=== PATIENT | male | born 1945 | race Caucasian/White ===

== ENCOUNTER 2018-12-17 10:38 | Inpatient (IN) ==
[2018-12-17] MEDS ORDERED: Ondansetron 4 MG/2 ML VIAL ONE ×2 (10:44→15:22)
[2018-12-17] MEDS ORDERED: 0.9 % Sodium Chloride 1,000 ML ONE (10:45)
[2018-12-17] MEDS ORDERED: *HR* FentaNYL (PF) 100 MCG/2 ML VIAL ONE ×2 (10:45→15:20)
[2018-12-17] MEDS ORDERED: Ondansetron 4 MG/2 ML VIAL IVP ONE (10:50)
[2018-12-17] MEDS ORDERED: *HR* FentaNYL (PF) 100 MCG/2 ML VIAL IVP ONE ×2 (10:51→13:30)
[2018-12-17] MEDS ORDERED: 0.9 % Sodium Chloride 1,000 ML IVC ONE (10:51)
--- NOTE | 2018-12-17 10:51 | Emergency Department Note ---
Disposition Clinical Impression: Abdominal pain, Perforated abdominal viscus, Leukocytosis, Frail elderly, Diabetes mellitus, Anemia Disposition: Admitted As Inpatient Forms: ED Satisfaction Letter, Work/School Release General Adult HPI - General Chief complaint: ED Abdominal Pain Stated complaint: Abdominal pain Time Seen by Provider: 12/17/18 10:50 Source: EMS Limitations: no limitations - History of Present Illness HPI Narrative: 73-year-old male reports emergency department complaining of abdominal pain. The patient had a colonoscopy yesterday with removal of a polyp per Dr. Vasquez. There is no history of trauma. The patient denies any chest pain or shortness of breath. No fevers. There is no history of vomiting of bloody material. No history of anticoagulant therapy. The patient has had no difficulty moving his arms or legs independently. He describes severe abdominal pain. Nursing describes a tight abdomen. No other acute complaints reported. Pain Scale: 10 - Related Data Home Medications Medication Instructions Recorded Confirmed Aspirin [Lo-Dose Aspirin EC] 02/13/18 Atorvastatin Calcium 02/13/18 Citalopram Hydrobromide 40 mg PO 02/13/18 [Citalopram HBr] Fenofibrate 02/13/18 Fiber 02/13/18 Fluticasone Propionate [Flovent 02/13/18 Diskus] Metformin HCl [Metformin HCl ER] 02/13/18 Metoprolol Tartrate 02/13/18 Nitroglycerin [Nitrostat] 02/13/18 [place]-3/Dha/Epa/Fish Oil [Fish Oil 02/13/18 1,000 mg Softgel] Proair Hfa 02/13/18 Tizanidine HCl [Zanaflex] 02/13/18 Ubidecarenone [Co Q-10] 200 mg PO 02/13/18 Vitamin D 02/13/18 Previous Rx's Medication Instructions Recorded Amoxicillin 875 mg PO BID #20 tablet 02/13/18 predniSONE [PredniSONE] 0 mg PO DAILY #15 tablet 02/13/18 Allergies Allergy/AdvReac Type Severity Reaction Status Date / Time No Known Allergies Allergy Verified 02/13/18 10:33 All systems ED: reviewed and negative except as stated. Past Medical History - Past Medical History Medical history: Reports: cancer, diabetes, hypertension Surgical history: Reports: coronary bypass (CABG) Psychiatric history: Reports: no psych history - Social History Smoking Status: Former smoker Smokeless Tobacco Status: No Alcohol use: Reports: none Physical Exam - General Limitations: no limitations General appearance: alert, in no apparent distress, other (Somewhat sedate on my examination status post Fentanyl infusion.) - Head Head exam: atraumatic, normocephalic, normal inspection - Eye Eye exam: Present: scleral icterus, miosis. Absent: EOMI, conjunctival injection - ENT ENT exam: normal exam, normal oropharynx, mucous membranes moist, TM's normal bilaterally, normal external ear exam - Neck Neck exam: Present: full ROM, trachea midline. Absent: normal inspection - Chest Chest inspection: Present: normal inspection, symmetric chest wall rise - Respiratory Respiratory exam: Present: normal lung sounds bilaterally. Absent: respiratory distress, prolonged expiratory phase - Cardiovascular Cardiovascular exam: Present: regular rate, normal rhythm, normal heart sounds - Abdominal Exam Abdominal exam: Present: tenderness, distention, rigidity. Absent: trauma, incision, pulsatile mass Abdominal tenderness: Present: severe - Extremities Exam Extremities exam: Present: normal inspection, full ROM, normal capillary refill. Absent: tenderness, pedal edema, joint swelling, calf tenderness - Expanded Lower Extremity Exam Neurovascular/Tendon exam: Present: normal capillary refill. Absent: motor deficit, sensory deficit, tendon deficit, extremity cold to touch, pallor - Back Exam Back exam: Present: normal inspection, full ROM. Absent: tenderness, CVA tenderness (R), CVA tenderness (L), vertebral tenderness - Neurological Exam Neurological exam: Present: alert, oriented X3, CN II-XII intact. Absent: motor sensory deficit - Psychiatric Psychiatric exam: Present: normal affect, normal mood - Skin Skin exam: Present: warm, dry, intact, normal color, diaphoresis. Absent: rash, cyanosis Course Vital Signs Temperature 98.3 F 12/17/18 10:41 Pulse Rate 84 12/17/18 10:41 Respiratory Rate 11 12/17/18 10:41 Blood Pressure 141/85 12/17/18 10:41 O2 Sat by Pulse Oximetry 90 12/17/18 10:41 Temperature 98.3 F 12/17/18 10:41 Pulse Rate 84 12/17/18 10:41 Respiratory Rate 11 12/17/18 10:41 Blood Pressure 141/85 12/17/18 10:41 O2 Sat by Pulse Oximetry 93 12/17/18 10:41 Oxygen Delivery Oxygen Delivery Room Air Medical Decision Making - MDM Narrative Medical decision making narrative: The patient presents with severe abdominal pain which began this morning. Clin ical peritonitis is noted. Acute obstruction series reveals no acute disease, laboratory studies show hyperglycemia and anemia and leukocytosis. CT scan abdomen reveals perforated midtransverse colon. Reportedly the patient had a colonoscopy with Dr. Vasquez yesterday with polypectomy. The patient was given IV fluids. Pain control measures were initiated. I informed the patient and family members of his diagnosis and called Dr. Carter, surgeon on-call who came to the emergency department to evaluate the patient. The patient will likely require surgical intervention and we are planning to admit the patient. I have a page out to Dr. Vasquez and am attempting to notify him. - Lab Data Lab results reviewed: Yes I reviewed the patient's lab results. Result diagrams: 12/17/18 11:29 12/17/18 11:29 Lab Results 12/17/18 12/17/18 12/17/18 Range/Units 11:29 11:29 11:29 WBC 26.2 H (4.3-11.1) K/mcL RBC 4.49 (4.19-5.50) M/mcL Hgb 12.7 L (12.9-16.9) g/dL Hct 39.3 (37.5-50.1) % MCV 87.5 (83.0-100.0) fL MCH 28.3 (28.0-33.3) pg MCHC 32.3 (31.6-35.5) g/dL RDW 13.1 (11.5-14.5) % Plt Count 249 (140-400) K/mcL MPV 14.0 H (9.4-12.4) fL Immature Gran % Test Not Performed Seg Neutrophils % 74.0 % Band Neutrophils % 8.0 H (0-4) % Lymphocytes % 4.0 % Monocytes % 14.0 % Eosinophils % Test Not Performed Basophils % Test Not Performed Neutrophils # 21.5 H (1.6-8.9) K/mcL Lymphocytes # 1.1 (0.6-4.6) K/mcL Monocytes # 3.7 H (0.0-1.3) K/mcL Eosinophils # Test Not Performed Basophils # Test Not Performed Platelet Estimate Normal (Normal) PT 11.8 (9.4-12.1) Seconds INR 1.0 APTT 31.9 (26.0-36.0) Seconds Sodium 140 (136-145) mEq/L Potassium 4.5 (3.5-5.1) mEq/L Chloride 105 (98-107) mEq/L Carbon Dioxide 26 (23-29) mEq/L BUN 19 (8-23) mg/dL Creatinine 1.19 (0.70-1.30) mg/dL Est GFR ( Amer) > 60 (> 60) Est GFR (Non-Af Amer) > 60 (> 60) BUN/Creatinine Ratio 16 (6-26) Glucose 253 H (70-105) mg/dL Calculated Osmolality 301 H (280-300) Lactic Acid (0.5-2.2) mmol/L Calcium 9.7 (8.6-10.3) mg/dL Total Bilirubin 0.8 (0.3-1.0) mg/dL Direct Bilirubin 0.2 (0.0-0.2) mg/dL Indirect Bilirubin 0.6 (0.0-1.2) mg/dL AST 15 (13-39) Units/L ALT 24 (7-52) Units/L Alkaline Phosphatase 66 (34-104) Units/L Troponin I < 0.03 (< 0.04) ng/mL Serum Total Protein 6.8 (6.4-8.9) g/dL Albumin 4.3 (3.5-5.7) g/dL Globulin 2.5 (2.4-3.5) g/dL Albumin/Globulin Ratio 1.7 (1.1-2.2) Lipase 9 L (11-82) Units/L 12/17/18 Range/Units 11:29 WBC (4.3-11.1) K/mcL RBC (4.19-5.50) M/mcL Hgb (12.9-16.9) g/dL Hct (37.5-50.1) % MCV (83.0-100.0) fL MCH (28.0-33.3) pg MCHC (31.6-35.5) g/dL RDW (11.5-14.5) % Plt Count (140-400) K/mcL MPV (9.4-12.4) fL Immature Gran % Seg Neutrophils % % Band Neutrophils % (0-4) % Lymphocytes % % Monocytes % % Eosinophils % Basophils % Neutrophils # (1.6-8.9) K/mcL Lymphocytes # (0.6-4.6) K/mcL Monocytes # (0.0-1.3) K/mcL Eosinophils # Basophils # Platelet Estimate (Normal) PT (9.4-12.1) Seconds INR APTT (26.0-36.0) Seconds Sodium (136-145) mEq/L Potassium (3.5-5.1) mEq/L Chloride (98-107) mEq/L Carbon Dioxide (23-29) mEq/L BUN (8-23) mg/dL Creatinine (0.70-1.30) mg/dL Est GFR ( Amer) (> 60) Est GFR (Non-Af Amer) (> 60) BUN/Creatinine Ratio (6-26) Glucose (70-105) mg/dL Calculated Osmolality (280-300) Lactic Acid 2.1 (0.5-2.2) mmol/L Calcium (8.6-10.3) mg/dL Total Bilirubin (0.3-1.0) mg/dL Direct Bilirubin (0.0-0.2) mg/dL Indirect Bilirubin (0.0-1.2) mg/dL AST (13-39) Units/L ALT (7-52) Units/L Alkaline Phosphatase (34-104) Units/L Troponin I (< 0.04) ng/mL Serum Total Protein (6.4-8.9) g/dL Albumin (3.5-5.7) g/dL Globulin (2.4-3.5) g/dL Albumin/Globulin Ratio (1.1-2.2) Lipase (11-82) Units/L - Radiology Data Radiology results reviewed: Yes I reviewed the patient's radiology results.
[2018-12-17 11:43] LABS: Hematocrit 39.3 % (37.5-50.1); Hemoglobin 12.7 g/dL (12.9-16.9); Mean Corpuscular HGB Conc 32.3 g/dL (31.6-35.5); Mean Corpuscular Hemoglobin 28.3 pg (28.0-33.3); Mean Corpuscular Volume 87.5 fL (83.0-100.0); Platelet Count 249 K/mcL (140-400); Red Blood Count 4.49 M/mcL (4.19-5.50); Red Cell Distribution Width 13.1 % (11.5-14.5)
[2018-12-17] MEDS ORDERED: Isovue-370 500 ML BOTTLE IVP ONE (11:51)
[2018-12-17 11:53] LABS: Prothrombin Time 11.8 Seconds (9.4-12.1)
[2018-12-17 11:55] LABS: Activated Partial Thrombo Time 31.9 Seconds (26.0-36.0)
[2018-12-17 12:04] LABS: Troponin I < 0.03 ng/mL (< 0.04)
[2018-12-17 12:05] LABS: Alanine Aminotransferase 24 Units/L (7-52); Albumin 4.3 g/dL (3.5-5.7); Albumin/Globulin Ratio 1.7 (1.1-2.2); Alkaline Phosphatase 66 Units/L (34-104); Aspartate Amino Transferase 15 Units/L (13-39); BUN/Creatinine Ratio 16 (6-26); Bilirubin,Direct 0.2 mg/dL (0.0-0.2); Bilirubin,Indirect 0.6 mg/dL (0.0-1.2); Bilirubin,Total 0.8 mg/dL (0.3-1.0); Blood Urea Nitrogen 19 mg/dL (8-23); Calcium 9.7 mg/dL (8.6-10.3); Carbon Dioxide 26 mEq/L (23-29); Chloride 105 mEq/L (98-107); Globulin 2.5 g/dL (2.4-3.5); Glucose 253 mg/dL (70-105); Lipase 9 Units/L (11-82); Osmolality,Calculated 301 (280-300); Potassium 4.5 mEq/L (3.5-5.1); Sodium 140 mEq/L (136-145); Total Protein 6.8 g/dL (6.4-8.9); eGFR For Non-African Americans > 60 (> 60)
[2018-12-17 12:51] LABS: Lymphocytes # 1.1 K/mcL (0.6-4.6); Monocytes # 3.7 K/mcL (0.0-1.3); Neutrophils # 21.5 K/mcL (1.6-8.9)
[2018-12-17 12:52] LABS: Platelet Estimate Normal (Normal)
--- NOTE | 2018-12-17 13:48 | General Surg History&Physical ---
Date of Encounter: 12/17/18 Time of Encounter: 13:40 Assessment and Plan (1) Perforated abdominal viscus Current Visit: Yes Status: Acute The assessment and plan as outlined above was discussed with the patient and/or family members who expressed understanding and agreement. All questions were answered. The patient has an acute perforation of the colon by CAT scan and on physical examination. I recommended immediate exploratory laparotomy with repair, resection, or diversion of the transverse colon. History of Present Illness Chief complaint: Acute abdomen HPI: Mr. Higginbotham is a 73 year old male Who underwent colonoscopy yesterday. He had multiple colon polyps removed. He developed abdominal pain last night. Now he has severe pain with motion and a distended abdomen. On physical examination he clearly has diffuse peritonitis with rebound tenderness and an acute abdomen. White blood cell count is elevated at 26,200 CAT scan of the abdomen demonstrates multiple foci of free air with inflammatory changes in the transverse colon. Findings are consistent with acute colon perforation. Since the patient has an acute abdomen and leukocytosis I recommended immediate exploratory laparotomy with any necessary procedure to repair, resect, or divert the colon. Past Med Surg Social Fam HX - Past Medical History Medical history: cancer, diabetes, hypertension Additional medical history: sleep apnea Psychiatric history: no psych history - Past Surgical History Surgical History: coronary bypass (CABG) Additional surgical history: colonoscopy - Social History Smoking Status: Former smoker Smokeless Tobacco Status: No Alcohol use: none Medications and Allergies Amoxicillin 875 mg PO BID #20 tablet 02/13/18 [Rx] Aspirin [Lo-Dose Aspirin EC] 02/13/18 [History] Atorvastatin Calcium 02/13/18 [History] Citalopram Hydrobromide [Citalopram HBr] 40 mg PO 02/13/18 [History] Fenofibrate 02/13/18 [History] Fiber 02/13/18 [History] Fluticasone Propionate [Flovent Diskus] 02/13/18 [History] Metformin HCl [Metformin HCl ER] 02/13/18 [History] Metoprolol Tartrate 02/13/18 [History] Nitroglycerin [Nitrostat] 02/13/18 [History] [place]-3/Dha/Epa/Fish Oil [Fish Oil 1,000 mg Softgel] 02/13/18 [History] Proair Hfa 02/13/18 [History] Tizanidine HCl [Zanaflex] 02/13/18 [History] Ubidecarenone [Co Q-10] 200 mg PO 02/13/18 [History] Vitamin D 02/13/18 [History] predniSONE [PredniSONE] 0 mg PO DAILY #15 tablet 02/13/18 [Rx] Allergy/AdvReac Type Severity Reaction Status Date / Time No Known Allergies Allergy Verified 02/13/18 10:33 Review of Systems All systems PM: The remainder of the systems were reviewed and are negative General Surgery Exam Initial Vital Signs Temp Pulse Resp BP Pulse Ox 98.3 F 84 11 141/85 90 12/17/18 10:41 12/17/18 10:41 12/17/18 10:41 12/17/18 10:41 12/17/18 10:41 - General physical appearance well developed, well nourished, severe pain, obese - Neck no masses, no bruits, trachea midline, no lymphadectomy, no venous distension - Respiratory normal expansion, normal respiratory effort, clear to percussion, clear to auscultation - Cardiovascular Cardiovascular exam: Present: RRR, no murmurs/rubs/gallops - Abdomen Abdomen general surgery: Present: guarding, rebound Abdominal Tenderness: Present: diffusely - Neurologic Present: CN 2-12 grossly intact, normal coordination, normal sensation - Psychiatric Psychiatric general surgery: Present: appropriate, oriented to person, oriented to place, oriented to time, speech is normal, memory intact Results - Labs 12/17/18 11:29 12/17/18 11:29 Abnormal lab results WBC 26.2 K/mcL (4.3-11.1) H 12/17/18 11:29 Hgb 12.7 g/dL (12.9-16.9) L 12/17/18 11:29 MPV 14.0 fL (9.4-12.4) H 12/17/18 11:29 Band Neutrophils % 8.0 % (0-4) H 12/17/18 11:29 Neutrophils # 21.5 K/mcL (1.6-8.9) H 12/17/18 11:29 Monocytes # 3.7 K/mcL (0.0-1.3) H 12/17/18 11:29 Glucose 253 mg/dL (70-105) H 12/17/18 11:29 Calculated Osmolality 301 (280-300) H 12/17/18 11:29 Lipase 9 Units/L (11-82) L 12/17/18 11:29 Diabetes panel 12/17/18 Range/Units 11:29 Sodium 140 (136-145) mEq/L Potassium 4.5 (3.5-5.1) mEq/L Chloride 105 (98-107) mEq/L Carbon Dioxide 26 (23-29) mEq/L BUN 19 (8-23) mg/dL Creatinine 1.19 (0.70-1.30) mg/dL Glucose 253 H (70-105) mg/dL Calcium 9.7 (8.6-10.3) mg/dL AST 15 (13-39) Units/L ALT 24 (7-52) Units/L Alkaline Phosphatase 66 (34-104) Units/L Albumin 4.3 (3.5-5.7) g/dL Calcium panel 12/17/18 Range/Units 11:29 Calcium 9.7 (8.6-10.3) mg/dL Albumin 4.3 (3.5-5.7) g/dL Pituitary panel 12/17/18 Range/Units 11:29 Sodium 140 (136-145) mEq/L Potassium 4.5 (3.5-5.1) mEq/L Chloride 105 (98-107) mEq/L Carbon Dioxide 26 (23-29) mEq/L BUN 19 (8-23) mg/dL Creatinine 1.19 (0.70-1.30) mg/dL Glucose 253 H (70-105) mg/dL Calcium 9.7 (8.6-10.3) mg/dL Adrenal panel 12/17/18 Range/Units 11:29 Sodium 140 (136-145) mEq/L Potassium 4.5 (3.5-5.1) mEq/L Chloride 105 (98-107) mEq/L Carbon Dioxide 26 (23-29) mEq/L BUN 19 (8-23) mg/dL Creatinine 1.19 (0.70-1.30) mg/dL Glucose 253 H (70-105) mg/dL Calcium 9.7 (8.6-10.3) mg/dL Total Bilirubin 0.8 (0.3-1.0) mg/dL AST 15 (13-39) Units/L ALT 24 (7-52) Units/L Alkaline Phosphatase 66 (34-104) Units/L Albumin 4.3 (3.5-5.7) g/dL All other labs normal. - Imaging CT scan - abdomen: image reviewed (I personally reviewed the CAT scan of the abdomen and the findings are consistent with with perforated transverse colon.)
[2018-12-17] MEDS ORDERED: Piperacillin/Tazobactam 3.375 GM in 0.9 % Sodium Chloride Mini Bag 100 ML IVPB ONE (13:52)
--- NOTE | 2018-12-17 14:03 | Anesthesia Evaluation PreOp ---
Date of Encounter: 12/17/18 Time of Encounter: 14:22 - Past History Planned Operation: Exploratory Laparotomy Cardiac History: CHF, HTN, Hyperlipidemia, Cardiac Surgery (CABG x 3 in 2010) Pulmonary History: Former smoker (quit 10 years ago), COPD, TAE Dx (does not use CPAP) INSTRUMENTATION CONTROLS ENGINEER History: Denies Any Significant HX Other Medical History: Diabetes Type II Anesthesia History: No Prior Anesthetic Complications, Past Anesthesia Alcohol Use: none Drug use: none Medications and Allergies Amoxicillin 875 mg PO BID #20 tablet 02/13/18 [Rx] Aspirin [Lo-Dose Aspirin EC] 02/13/18 [History] Atorvastatin Calcium 02/13/18 [History] Citalopram Hydrobromide [Citalopram HBr] 40 mg PO 02/13/18 [History] Fenofibrate 02/13/18 [History] Fiber 02/13/18 [History] Fluticasone Propionate [Flovent Diskus] 02/13/18 [History] Metformin HCl [Metformin HCl ER] 02/13/18 [History] Metoprolol Tartrate 02/13/18 [History] Nitroglycerin [Nitrostat] 02/13/18 [History] [place]-3/Dha/Epa/Fish Oil [Fish Oil 1,000 mg Softgel] 02/13/18 [History] Proair Hfa 02/13/18 [History] Tizanidine HCl [Zanaflex] 02/13/18 [History] Ubidecarenone [Co Q-10] 200 mg PO 02/13/18 [History] Vitamin D 02/13/18 [History] predniSONE [PredniSONE] 0 mg PO DAILY #15 tablet 02/13/18 [Rx] Allergy/AdvReac Type Severity Reaction Status Date / Time No Known Allergies Allergy Verified 02/13/18 10:33 - Meds/Allergy Pre-op Review Medications Reviewed: Yes Allergies Reviewed: Yes Beta Blockers on Current Med List: Yes If Beta Blockers taken, Date/Time (Last Dose taken): 12/16/2018 at 2300 Anesthesia Results - Labs 12/17/18 11:29 12/17/18 11:29 - Imaging EKG: report reviewed (02/13/2018 SINUS RHYTHM WITH SINUS ARRHYTHMIA INDETERMINATE AXIS RIGHT BUNDLE BRANCH BLOCK) Anesthesia Exam Vital Signs/O2 Sat, Most Current Temp Pulse Resp BP Pulse Ox 98.3 F 92 16 166/85 97 12/17/18 10:41 12/17/18 13:37 12/17/18 13:37 12/17/18 13:37 12/17/18 13:37 Height: 5'11''/1.8m Weight: 240 lbs/108.9 kg NPO (# of Hours): 8 Pain Scale: 4 (abdomen) Pain Scale Used: Numeric (1 - 10) - HEENT Pupil (Motor): EOMI Mallampati: III Teeth: Normal Oral Opening: Greater than 3 - INSTRUMENTATION CONTROLS ENGINEER LOC: Oriented INSTRUMENTATION CONTROLS ENGINEER Motor: Normal RUE, Normal LUE, Normal RLE, Normal LLE, Normal Face INSTRUMENTATION CONTROLS ENGINEER Sensory: Normal: RUE, LUE, RLE, LLE, Face - Cardiac Rhythm: Regular Murmur: Systolic - Pulmonary Breath Sounds: bilateral Clear Respiratory Effort: Symmetrical Anesthesia Assess/Plan ASA Score: 3 ( Patient understands that he is at increased risk for perio perative complications including myocardial infarct, arrhythmias, CVA, post op vent support/ICU stay, and . Patient wishes to proceed.) Level of consciousness: Cooperative, Oriented, Tranquil Anesthetic Plan: General Monitoring Plan: Standard Monitors Recovery Plan: PACU
[2018-12-17] MEDS ORDERED: 0.9 % Sodium Chloride 1,000 ML IVC SCH (14:15)
[2018-12-17] MEDS ORDERED: CefOXitin 1,000 MG VIAL ONE (14:23)
[2018-12-17] MEDS ORDERED: Heparin 1,000 UNITS/500 mL 500 ML ONE (14:25)
[2018-12-17] MEDS ORDERED: cefOXitin 1,000 MG, Sodium Chloride IRRigation 1,000 ML IR ONE (15:00)
--- NOTE | 2018-12-17 15:09 | Anesthesia Procedures ---
Date of Encounter: 12/17/18 Time of Encounter: 14:33 Procedures: Anesthesia - Arterial Line Time out performed: Yes Sedation: Fentanyl (mcg): 100 Supplemental Oxygen via Nasal Cannula (L/min): 3 Local Anesthetic: Lidocaine 1% Amount of Anesthetic used (mls): 1 Size (Gauge): 20 Length (inches): 1 3/4 Technique Used: sterile prep, guide wire technique Post-Procedure: line taped into place Patient tolerated procedure: well, no complications Complications: none Site: Radial L
[2018-12-17] MEDS ORDERED: *HR* Propofol 200 MG/20 ML VIAL IVP ONE (15:20)
[2018-12-17] MEDS ORDERED: Lidocaine -MPF 4% 5 ML AMPUL ONE (15:20)
[2018-12-17] MEDS ORDERED: *HR* Rocuronium Bromide 50 MG/5 ML VIAL ONE (15:20)
[2018-12-17] MEDS ORDERED: *HR* Midazolam HCl 2 MG/2 ML VIAL ONE (15:20)
[2018-12-17] MEDS ORDERED: Lidocaine -MPF 2% 2 ML VIAL ONE ×2 (15:20→15:21)
[2018-12-17] MEDS ORDERED: *HR* Succinylcholine 200 MG/10 ML VIAL IVP ONE (15:20)
[2018-12-17] MEDS ORDERED: Dexamethasone 4 MG/ML VIAL ONE (15:22)
[2018-12-17] MEDS ORDERED: Neostigmine Methylsulfate 3 MG/3 ML SYRINGE ONE (15:22)
[2018-12-17] MEDS ORDERED: *HR* Metoprolol 5 MG/5 ML VIAL IVP ONE (15:24)
--- NOTE | 2018-12-17 15:47 | Operative Note ---
Date of procedure: 12/17/18 Pre-op diagnosis: Colon perforation with acute abdomen Post-op diagnosis: same Procedure: Open repair of colon injury (perforation) Anesthesia: GHISLAINE Surgeon: Anthony Carter Was there an commercial escrow assistant present: Yes Seed Laboratory Assistant: Teresita Paulino Estimated blood loss (cc): 20 Specimen: None Condition: stable Disposition: PACU Procedure in Detail: After informed consent patient was taken to the operating room on an emergency basis. He was given adequate endotracheal anesthesia and the abdomen was prepped and draped in sterile fashion utilizing ChloraPrep standard draping techniques. Timeout was taken and patient was identified. I made an upper abdominal midline incision over where I believed the perforation was in the transverse colon. The abdomen was entered. He had free pus in the abdomen but no visible stool. Abdomen was irrigated clear of any pus. I examined the transverse colon and identified a 1 cm opening in the mid transverse colon the surrounding margins appeared whitish discolored consistent with thermal injury. I circumferentially debrided the wound. I was very pleased with the quality of tissue. Since there was no stool contamination I felt that the patient would do well with primary closure. I closed the opening in the transverse colon in 2 layers with interrupted 3-0 Vicryl on the mucosal layer and interrupted 2-0 silk on the sero- muscular layer. I used an omental patch over the top of the closure and this was secured with interrupted Vicryl. This given excellent technical result. The entire abdomen was irrigated with copious amounts of antibiotic containing solution until completely clear. The midline was closed with looped 0 PDS. Skin was closed with interrupted 2-0 Vicryl and skin clips. He tolerated The procedure well.
[2018-12-17] MEDS: *HR* HYDROmorphone (PF) 1 MG/ML SYRINGE IVP PRN ×2 (16:29→16:35)
--- NOTE | 2018-12-17 16:57 | Anesthesia Evaluation Post Op ---
Date of Encounter: 12/17/18 Time of Encounter: 16:55 - Vital Signs Vital Signs: Vital Signs/O2 Sat, Most Current Temp Pulse Resp BP Pulse Ox 100.4 F H 96 20 166/80 91 12/17/18 16:40 12/17/18 16:40 12/17/18 16:40 12/17/18 16:40 12/17/18 16:40 - Lungs Lungs: Clear Ascult./Percussion - Airway Airway: Non-obstructed - Cardiovascular Regular Rate - Mental Status Mental Status: Asleep with brisk response to light stimulation - Nausea Vomiting Nausea Vomiting: Not Present - Hydration Hydration: NPO, Has not voided - Discharge PostOp Status: Transfer Patient to floor
[2018-12-17] MEDS ORDERED: *HR* Morphine 2 MG/ML SYRINGE IVP PRN (17:20)
[2018-12-17] MEDS ORDERED: *HR* Heparin 5,000 UNIT/ML VIAL SQ SCH (18:00)
[2018-12-17] MEDS: *HR* Heparin 5,000 UNIT/ML VIAL SQ SCH (18:54)
[2018-12-17] MEDS: 0.9 % Sodium Chloride 1,000 ML IVC SCH (18:56)
[2018-12-17] MEDS: OXYCODONE Oral CONC 10 MG/0.5 ML ORAL.SYG SL PRN (20:11)
[2018-12-17] MEDS: Piperacillin/Tazobactam 3.375 GM in 0.9 % Sodium Chloride Mini Bag 100 ML IVPB SCH (22:41)
[2018-12-18] MEDS: 0.9 % Sodium Chloride 1,000 ML IVC SCH ×2 (05:12→13:54)
[2018-12-18] MEDS: Piperacillin/Tazobactam 3.375 GM in 0.9 % Sodium Chloride Mini Bag 100 ML IVPB SCH ×3 (05:22→22:59)
[2018-12-18] MEDS: *HR* Heparin 5,000 UNIT/ML VIAL SQ SCH ×2 (05:22→17:11)
[2018-12-18 06:36] LABS: Basophils % 0.1 %; Hematocrit 35.6 % (37.5-50.1); Hemoglobin 11.4 g/dL (12.9-16.9); Immature Granulocytes % 0.5 % (0-4); Lymphocytes % 5.8 %; Mean Corpuscular Hemoglobin 28.4 pg (28.0-33.3); Mean Corpuscular Volume 88.8 fL (83.0-100.0); Mean Platelet Volume 14.4 fL (9.4-12.4); Monocytes # 0.7 K/mcL (0.0-1.3); Monocytes % 4.1 %; Platelet Count 194 K/mcL (140-400); Red Blood Count 4.01 M/mcL (4.19-5.50); Red Cell Distribution Width 13.4 % (11.5-14.5); Segmented Neutrophils % 89.5 %
[2018-12-18 06:56] LABS: BUN/Creatinine Ratio 16 (6-26); Blood Urea Nitrogen 18 mg/dL (8-23); Calcium 9.2 mg/dL (8.6-10.3); Carbon Dioxide 26 mEq/L (23-29); Chloride 109 mEq/L (98-107); Glucose 173 mg/dL (70-105); Osmolality,Calculated 300 (280-300); Sodium 142 mEq/L (136-145); eGFR For Non-African Americans > 60 (> 60)
[2018-12-18] MEDS: OXYCODONE Oral CONC 10 MG/0.5 ML ORAL.SYG SL PRN ×3 (07:23→23:04)
[2018-12-18] MEDS: Pantoprazole 40 MG VIAL IVP SCH (07:23)
[2018-12-18 07:30] LABS: Platelet Estimate Normal (Normal)
--- NOTE | 2018-12-18 08:29 | General Surgery Progress Note ---
Date of Encounter: 12/18/18 Time of Encounter: 07:00 - Assessment and Plan (1) Perforated abdominal viscus Current Visit: Yes Status: Acute The patient is postoperative day 1 from repair of colon perforation. His pain is improved. We will continue IV antibiotics today. Continue supportive care today. (2) Diabetes mellitus Current Visit: Yes Status: Acute The patient has mild hyperglycemia with glucose levels of 170. We will restart his metformin. Qualifiers: Diabetes mellitus type: type 2 Diabetes mellitus animal care specialist insulin use: without group home use Diabetes mellitus complication status: without complication Qualified Code(s): E11.9 - Type 2 diabetes mellitus without complications Subjective Narrative: The patient is seen and evaluated on morning rounds. The patient states that he is having 5 out of 10 pain which is an improvement from his preoperative pain. He is afebrile and his vital signs are stable and he does have a few bowel sounds in the right lower quadrant. Lungs are clear. His white blood cell c ount has dropped dramatically from 26,000 down to 16,000. His glucose level was 170. Heart rate is in the 90s. We will restart his metoprolol as well as metformin today. Maintain clear liquid diet. Expected course for postoperative day 1 repair of colon perforation Anthony Carter MD FACS Objective Vital Signs - Last 8 Hours Temp Pulse Resp BP Pulse Ox 12/18/18 06:41 98.2 F 94 20 160/83 95 12/18/18 04:00 98.8 F 94 16 150/74 95 Intake and Output 12/17/18 12/18/18 12/18/18 23:59 07:59 15:59 Intake Total 1100 / 1100 Output Total 250 / 250 Balance -250 / -250 1100 / 1100 Intake: IV Fluids 1100 / 1100 0.9 % Sodium Chloride 1,000 ML 1000 / 1000 @ 100 mls/hr IVC .Q10H AIME Rx#: [id number] Zosyn 3.375 GM In 0.9 % Sodium 100 / 100 Chloride (Mini-Bag +) 100 ML @ 25 mls/hr IVPB Q8H AIME Rx#: [id number] Output: Urine 250 / 250 Other: Blood Glucose* 203 - General physical appearance well developed, well nourished, moderate pain - Respiratory normal expansion, normal respiratory effort, clear to percussion, clear to auscultation - Cardiovascular Cardiovascular exam: Present: RRR, no murmurs/rubs/gallops - Abdomen Abdomen: Present: bowel sounds present, soft (Incisional pain noted) - Incision Incision: Present: clean and dry - Neurologic normal coordination, normal sensation - Psychiatric oriented to time, oriented to person, oriented to place, speech is normal, memory intact - Labs 12/18/18 06:12 12/18/18 06:12 Diabetes panel 12/17/18 12/18/18 Range/Units 11: 06:12 Sodium 140 142 (136-145) mEq/L Potassium 4.5 4.0 (3.5-5.1) mEq/L Chloride 105 109 H (98-107) mEq/L Carbon Dioxide 26 26 (23-29) mEq/L BUN 19 18 (8-23) mg/dL Creatinine 1.19 1.10 (0.70-1.30) mg/dL Glucose 253 H 173 H (70-105) mg/dL Calcium 9.7 9.2 (8.6-10.3) mg/dL AST 15 (13-39) Units/L ALT 24 (7-52) Units/L Alkaline Phosphatase 66 (34-104) Units/L Albumin 4.3 (3.5-5.7) g/dL Calcium panel 12/17/18 12/18/18 Range/Units 11: 06:12 Calcium 9.7 9.2 (8.6-10.3) mg/dL Albumin 4.3 (3.5-5.7) g/dL Pituitary panel 12/17/18 12/18/18 Range/Units 11: 06:12 Sodium 140 142 (136-145) mEq/L Potassium 4.5 4.0 (3.5-5.1) mEq/L Chloride 105 109 H (98-107) mEq/L Carbon Dioxide 26 26 (23-29) mEq/L BUN 19 18 (8-23) mg/dL Creatinine 1.19 1.10 (0.70-1.30) mg/dL Glucose 253 H 173 H (70-105) mg/dL Calcium 9.7 9.2 (8.6-10.3) mg/dL Adrenal panel 12/17/18 12/18/18 Range/Units 11: 06:12 Sodium 140 142 (136-145) mEq/L Potassium 4.5 4.0 (3.5-5.1) mEq/L Chloride 105 109 H (98-107) mEq/L Carbon Dioxide 26 26 (23-29) mEq/L BUN 19 18 (8-23) mg/dL Creatinine 1.19 1.10 (0.70-1.30) mg/dL Glucose 253 H 173 H (70-105) mg/dL Calcium 9.7 9.2 (8.6-10.3) mg/dL Total Bilirubin 0.8 (0.3-1.0) mg/dL AST 15 (13-39) Units/L ALT 24 (7-52) Units/L Alkaline Phosphatase 66 (34-104) Units/L Albumin 4.3 (3.5-5.7) g/dL Consult Discharge Plan - Plan Referrals: Anthony Carter MD [Partnered Physician] - Yared Resendiz DO [Primary Care Provider] -
[2018-12-18] MEDS: *HR* OxyCODONE/APAP 5/325 TABLET PO PRN ×2 (11:18→17:09)
[2018-12-18] MEDS: *HR* Metoprolol 5 MG/5 ML VIAL IVP PRN (17:56)
[2018-12-19] MEDS: 0.9 % Sodium Chloride 1,000 ML IVC SCH ×2 (00:50→14:22)
[2018-12-19 04:48] LABS: Hematocrit 34.2 % (37.5-50.1); Hemoglobin 10.6 g/dL (12.9-16.9); Mean Corpuscular Hemoglobin 27.9 pg (28.0-33.3); Mean Platelet Volume 14.2 fL (9.4-12.4); Platelet Count 184 K/mcL (140-400); Red Cell Distribution Width 13.2 % (11.5-14.5)
[2018-12-19] MEDS: Piperacillin/Tazobactam 3.375 GM in 0.9 % Sodium Chloride Mini Bag 100 ML IVPB SCH ×3 (05:04→21:05)
[2018-12-19 05:05] LABS: BUN/Creatinine Ratio 19 (6-26); Blood Urea Nitrogen 17 mg/dL (8-23); Calcium 9.5 mg/dL (8.6-10.3); Carbon Dioxide 25 mEq/L (23-29); Chloride 109 mEq/L (98-107); Glucose 147 mg/dL (70-105); Osmolality,Calculated 300 (280-300); Potassium 3.8 mEq/L (3.5-5.1); Sodium 143 mEq/L (136-145); eGFR For Non-African Americans > 60 (> 60)
[2018-12-19] MEDS: *HR* Heparin 5,000 UNIT/ML VIAL SQ SCH ×2 (05:06→17:43)
[2018-12-19] MEDS: *HR* Metoprolol 5 MG/5 ML VIAL IVP PRN ×2 (05:06→12:55)
[2018-12-19] MEDS ORDERED: Furosemide 40 MG/4 ML VIAL IVP ONE (07:41)
[2018-12-19] MEDS ORDERED: Ondansetron 4 MG/2 ML VIAL IVP PRN (07:55)
[2018-12-19] MEDS: OXYCODONE Oral CONC 10 MG/0.5 ML ORAL.SYG SL PRN (07:59)
[2018-12-19] MEDS: *HR* Metformin 500 MG TABLET PO SCH (08:00)
[2018-12-19] MEDS: Pantoprazole 40 MG VIAL IVP SCH (08:01)
--- NOTE | 2018-12-19 08:15 | General Surgery Progress Note ---
Addendum entered and electronically signed by Christina Cano CNP 12/19/18 09:16: CXR is with mild pulmonary vascular congestion, small right greater than left bilateral pleural effusions with probable underlying atelectasis or infiltrate. Patient states since receiving Lasix "are ready feels better." We did expressly review the need for aggressive pulmonary toileting and patient participation today. He is agreeable and states adherence. KUB is with small amount of postoperative ileus. We've decreased his diet and well follow bowel rest today. Addendum entered and electronically signed by Christina Cano CNP 12/19/18 08:53: VITAL SIGNS: Reviewed. See [facility] GENERAL: In no apparent distress. HEENT: Normocephalic, atraumatic, pupils are equal and reactive, extraocular motions intact, oropharynx is pink and moist, there is no neck adenopathy or JVD noted. CHEST/RESPIRATORY: The thorax is free from signs of trauma. Lung sounds: course wet breath sounds insp wheezes CARDIAC: Regular rate and rhythm. Normal S1 and S2, without murmurs, gallops, or rubs. VASCULAR: No Edema. 2+ peripheral pulses. ABDOMEN: Firm, distended, expected postoperative tenderness, INCISION: Surgical incision is clean, dry, and intact. There are no signs of cellulitis or infection noted. MUSCULOSKELETAL: Generalized deconditioning noted, NEUROLOGIC EXAM: Alert and oriented x 3. Speech normal. Follows commands. PSYCHIATRIC: Mood normal. SKIN: No rash or lesions. Original Note: Date of Encounter: 12/19/18 Time of Encounter: 07:15 - Assessment and Plan (1) Perforation of colon as colonoscopy complication Current Visit: Yes Status: Acute Date of procedure: 12/17/18 Pre-op diagnosis: Colon perforation with acute abdomen Post-op diagnosis: same Procedure: Open repair of colon injury (perforation) Anesthesia: ERINNA Surgeon: Anthony Carter POD #2 as above, no specimens obtained. Incision is c/d/i. Noted nutrition (at their discretion) advanced patient to clears with a protein supplement. Patient reports SOB and nausea, but no vomiting today. He denies flatus. He has wet lung sounds and possible postoperative ileus. We will treat him for suspect ed fluid overload with CXR (PA/LAT r/o PNA), lasix, add further antihypertensives, decrease fluids, decrease his diet, and check KUB (may require NG placement). he states he has not been out of bed and is using his incentive spirometer "whenever I feel like I can which is not much." Plan: Continue supportive care and discomfort management while awaiting return of bowel function NPO with limited ice chips KUB now, consideration for NG placement Decrease IVF Lasix x1 dose, now Hydralazine x1 dose now Add scheduled lisinopril Strict I&O EPCDs aggressive pulmonary toileting OOB to chair TID Ambulate TID Continue GI and DVT prophylaxis (2) HTN, goal below 130/80 Current Visit: Yes Status: Acute Continue PRN antihypertensives hydralazine x 1 dose now add scheduled PO lisinopril Decrease IVF (3) Leukocytosis Current Visit: Yes Status: Acute WBC is downtrending. Continue IV Zosyn repeat a.m. 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 Will obtian CXR, decrease IV fluids, provide Lasix, continue to monitor Qualifiers: Hypervolemia type: unspecified Qualified Code(s): E87.70 - Fluid overload, unspecified Subjective Patient reports: still having pain, voiding w/o difficulty, no flatus, no bowel movement, nausea, shortness of breath, afebrile Objective Vital Signs - Last 8 Hours Temp Pulse Resp BP Pulse Ox 12/19/18 06:53 98.4 F 93 22 200/98 95 12/19/18 05:01 98.3 F 94 21 193/100 94 Intake and Output 12/18/18 12/19/18 12/19/18 23:59 07:59 15:59 Intake Total 1220 / 1220 100 / 100 Output Total 650 / 650 Balance 1220 / 1220 -550 / -550 Intake: IV Fluids 1100 / 1100 100 / 100 0.9 % Sodium Chloride 1,000 ML 1000 / 1000 @ 100 mls/hr IVC .Q10H [facility] Rx#: [id number] Zosyn 3.375 GM In 0.9 % Sodium 100 / 100 100 / 100 Chloride (Mini-Bag +) 100 ML @ 25 mls/hr IVPB Q8H [facility] Rx#: [id number] Oral 120 / 120 0 / 0 Output: Urine 650 / 650 Other: # Voids 1 - Labs 12/19/18 03:55 12/19/18 03:55 Diabetes panel 12/19/18 Range/Units 03:55 Sodium 143 (136-145) mEq/L Potassium 3.8 (3.5-5.1) mEq/L Chloride 109 H (98-107) mEq/L Carbon Dioxide 25 (23-29) mEq/L BUN 17 (8-23) mg/dL Creatinine 0.89 (0.70-1.30) mg/dL Glucose 147 H (70-105) mg/dL Calcium 9.5 (8.6-10.3) mg/dL Calcium panel 12/19/18 Range/Units 03:55 Calcium 9.5 (8.6-10.3) mg/dL Pituitary panel 12/19/18 Range/Units 03:55 Sodium 143 (136-145) mEq/L Potassium 3.8 (3.5-5.1) mEq/L Chloride 109 H (98-107) mEq/L Carbon Dioxide 25 (23-29) mEq/L BUN 17 (8-23) mg/dL Creatinine 0.89 (0.70-1.30) mg/dL Glucose 147 H (70-105) mg/dL Calcium 9.5 (8.6-10.3) mg/dL Adrenal panel 12/19/18 Range/Units 03:55 Sodium 143 (136-145) mEq/L Potassium 3.8 (3.5-5.1) mEq/L Chloride 109 H (98-107) mEq/L Carbon Dioxide 25 (23-29) mEq/L BUN 17 (8-23) mg/dL Creatinine 0.89 (0.70-1.30) mg/dL Glucose 147 H (70-105) mg/dL Calcium 9.5 (8.6-10.3) mg/dL Consult Discharge Plan - Plan Referrals: Anthony Carter MD [Partnered Physician] - Yared Resendiz DO [Primary Care Provider] -
--- NOTE | 2018-12-19 10:48 | Electrocardiograph Report ---
[facility] Test Date: 2018-12-17 Pat Name: Honey Higginbotham Department: EXAM10 Room: 3A62 Gender: M Payroll Tax Analyst: : 1945 Requested By: Boris Clifton Order Number: [id number] Reading MD: Regina Pina Measurements Intervals [place] Rate: 89 P: 69 MO: 184 QRS: -3 QRSD: 149 T: 59 QT: 413 QTc: 503 Interpretive Statements Sinus rhythm Right bundle branch block Baseline wander in lead(s) II III aVF V1 V2 V3 V5 V6 Electronically Signed On 12-19-2018 10:47:01 EST by Regina Pina
[2018-12-19] MEDS: *HR* OxyCODONE/APAP 5/325 TABLET PO PRN (14:29)
[2018-12-19] MEDS: Fluticasone Propionate Nasal 50 MCG/SPRAY BOTTLE NS SCH (21:05)
[2018-12-20] MEDS: *HR* OxyCODONE/APAP 5/325 TABLET PO PRN ×2 (00:31→15:41)
[2018-12-20] MEDS: *HR* Metoprolol 5 MG/5 ML VIAL IVP PRN (00:39)
[2018-12-20] MEDS: Piperacillin/Tazobactam 3.375 GM in 0.9 % Sodium Chloride Mini Bag 100 ML IVPB SCH ×3 (05:16→21:19)
[2018-12-20] MEDS: *HR* Heparin 5,000 UNIT/ML VIAL SQ SCH ×2 (05:16→17:23)
[2018-12-20 06:06] LABS: Basophils % 0.1 %; Eosinophils % 0.4 %; Hematocrit 31.8 % (37.5-50.1); Immature Granulocytes % 0.4 % (0-4); Lymphocytes # 0.9 K/mcL (0.6-4.6); Lymphocytes % 8.8 %; Mean Corpuscular HGB Conc 31.4 g/dL (31.6-35.5); Mean Corpuscular Hemoglobin 27.9 pg (28.0-33.3); Mean Corpuscular Volume 88.6 fL (83.0-100.0); Mean Platelet Volume 13.4 fL (9.4-12.4); Monocytes # 0.6 K/mcL (0.0-1.3); Monocytes % 5.4 %; Platelet Count 204 K/mcL (140-400); Red Blood Count 3.59 M/mcL (4.19-5.50); Red Cell Distribution Width 13.4 % (11.5-14.5); Segmented Neutrophils % 84.9 %
[2018-12-20 06:26] LABS: BUN/Creatinine Ratio 27 (6-26); Blood Urea Nitrogen 25 mg/dL (8-23); Calcium 9.7 mg/dL (8.6-10.3); Carbon Dioxide 32 mEq/L (23-29); Chloride 104 mEq/L (98-107); Glucose 135 mg/dL (70-105); Magnesium 1.9 mg/dL (1.6-2.6); Osmolality,Calculated 304 (280-300); Phosphorous 2.2 mg/dL (2.7-4.5); Potassium 3.6 mEq/L (3.5-5.1); Sodium 144 mEq/L (136-145); eGFR For Non-African Americans > 60 (> 60)
[2018-12-20] MEDS ORDERED: Simethicone 80 MG TAB.CHEW PO PRN (07:34)
[2018-12-20] MEDS ORDERED: Furosemide 40 MG/4 ML VIAL IVP ONE (07:34)
--- NOTE | 2018-12-20 07:38 | General Surgery Progress Note ---
<Christina Cano - Last Filed: 12/20/18 07:36> Date of Encounter: 12/20/18 Time of Encounter: 07:36 - Assessment and Plan (1) Perforation of colon as colonoscopy complication Current Visit: Yes Status: Acute Date of procedure: 12/17/18 Pre-op diagnosis: Colon perforation with acute abdomen Post-op diagnosis: same Procedure: Open repair of colon injury (perforation) Anesthesia: ERINNA Surgeon: Anthony Carter POD #3 as above, no specimens obtained. Incision is c/d/i. Patient states his abdomen feels better than yesterday. He is belching and passing flatus. He reports that his breathing feels a little worse reporting shortness of breath and wheezing. He remains approximately 2.5 L positive this admission. CXR 12/19 with BL effusions overlying atelectasis versus infiltrate's. We will treat him with another dose of Lasix and have respiratory provide scheduled duonebs along with aggressive pulmonary toileting. His heart rate and blood pressure are improving. He notes adherence to the incentive spirometer and acappella WBC has normalized. Hgb stable, no evidence of bleeding Plan: Continue supportive care and discomfort management while awaiting return of bowel function clear liquid diet, no carbonation, IV to KVO Lasix x1 dose, now Hydralazine x1 dose now continue scheduled lisinopril continue strict intake and output, standing scale weights only due to diuresis EPCDs aggressive pulmonary toileting OOB to chair TID Ambulate TID Continue GI and DVT prophylaxis consult PT/OT for mobilization and discharge planning (2) HTN, goal below 130/80 Current Visit: Yes Status: Acute Continue PRN antihypertensives hydralazine x 1 dose now lisinopril BID Stop IVF (3) Leukocytosis Current Visit: Yes Status: Resolved Normalized continue zosyn repeat am labs Qualifiers: Leukocytosis type: unspecified Qualified Code(s): D72.829 - Elevated white blood cell count, unspecified (4) Diabetes mellitus Current Visit: Yes Status: Acute Continue metformin had lisinopril for renal protection as well has blood pressure management Qualifiers: Diabetes mellitus type: type 2 Diabetes mellitus care home insulin use: without local company intermodal truck driver use Diabetes mellitus complication status: without complication Qualified Code(s): E11.9 - Type 2 diabetes mellitus without complications (5) Fluid overload Current Visit: Yes Status: Suspected see a/p above Qualifiers: Hypervolemia type: unspecified Qualified Code(s): E87.70 - Fluid overload, unspecified Subjective Patient reports: feels better, still having pain, pain is less, voiding w/o difficulty, flatus, no bowel movement, afebrile, other (SOB and wheezing) Objective Vital Signs - Last 8 Hours Temp Pulse Resp BP Pulse Ox 12/20/18 03:48 98.5 F 64 15 169/75 96 12/20/18 00:58 99.0 F 82 17 190/77 96 Intake and Output 12/19/18 12/19/18 12/20/18 15:59 23:59 07:59 Intake Total 1100 / 1100 100 / 100 100 / 100 Output Total 2125 / 2125 250 / 250 200 / 200 Balance -1025 / -1025 -150 / -150 -100 / -100 Intake: IV Fluids 1100 / 1100 100 / 100 100 / 100 0.9 % Sodium Chloride 1,000 ML 1000 / 1000 @ 100 mls/hr IVC .Q10H A[facility] Rx#: [id number] Zosyn 3.375 GM In 0.9 % Sodium 100 / 100 100 / 100 100 / 100 Chloride (Mini-Bag +) 100 ML @ 25 mls/hr IVPB Q8H [facility] Rx#: [id number] Oral 0 / 0 0 / 0 Output: Urine 5 / 2125 250 / 250 200 / 200 Other: Meal NPO Weight 105.404 kg 105.6 kg Blood Glucose* 132 123 Patient Weight 12/20/18 23:59 Weight 105.6 kg VITAL SIGNS: Reviewed. See [facility] GENERAL: In no apparent distress. HEENT: Normocephalic, atraumatic, pupils are equal and reactive, extraocular motions intact, oropharynx is pink and moist, there is no neck adenopathy or JVD noted. CHEST/RESPIRATORY: The thorax is free from signs of trauma. Lung sounds: decreased, tight, inspiratory and expiratory wheezing CARDIAC: Regular rate and rhythm. Normal S1 and S2, without murmurs, gallops, or rubs. VASCULAR: No Edema. 2+ peripheral pulses. ABDOMEN: soft, expected postoperative tenderness, hypoactive bowel sounds, positive flatus INCISION: Surgical incision is clean, dry, and intact. There are no signs of cellulitis or infection noted. MUSCULOSKELETAL: generalized deconditioning noted. NEUROLOGIC EXAM: Alert and oriented x 3. Speech normal. Follows commands. PSYCHIATRIC: Mood normal. SKIN: No rash or lesions. - Labs 12/20/18 05:53 12/20/18 05:53 Diabetes panel 12/20/18 Range/Units 05:53 Sodium 144 (136-145) mEq/L Potassium 3.6 (3.5-5.1) mEq/L Chloride 104 (98-107) mEq/L Carbon Dioxide 32 H (23-29) mEq/L BUN 25 H (8-23) mg/dL Creatinine 0.94 (0.70-1.30) mg/dL Glucose 135 H (70-105) mg/dL Calcium 9.7 (8.6-10.3) mg/dL Calcium panel 12/20/18 Range/Units 05:53 Calcium 9.7 (8.6-10.3) mg/dL Phosphorus 2.2 L (2.7-4.5) mg/dL Pituitary panel 12/20/18 Range/Units 05:53 Sodium 144 (136-145) mEq/L Potassium 3.6 (3.5-5.1) mEq/L Chloride 104 (98-107) mEq/L Carbon Dioxide 32 H (23-29) mEq/L BUN 25 H (8-23) mg/dL Creatinine 0.94 (0.70-1.30) mg/dL Glucose 135 H (70-105) mg/dL Calcium 9.7 (8.6-10.3) mg/dL Adrenal panel 12/20/18 Range/Units 05:53 Sodium 144 (136-145) mEq/L Potassium 3.6 (3.5-5.1) mEq/L Chloride 104 (98-107) mEq/L Carbon Dioxide 32 H (23-29) mEq/L BUN 25 H (8-23) mg/dL Creatinine 0.94 (0.70-1.30) mg/dL Glucose 135 H (70-105) mg/dL Calcium 9.7 (8.6-10.3) mg/dL Consult Discharge Plan - Plan Referrals: Anthony Carter MD [Partnered Physician] - Yared Resendiz DO [Primary Care Provider] - <Anthony Carter - Last Filed: 12/20/18 09:57> Date of Encounter: 12/20/18 - Assessment and Plan (1) Perforated abdominal viscus Current Visit: Yes Status: Acute (2) Diabetes mellitus Current Visit: Yes Status: Acute Qualifiers: Diabetes mellitus type: type 2 Diabetes mellitus care home insulin use: without care home use Diabetes mellitus complication status: without complication Qualified Code(s): E11.9 - Type 2 diabetes mellitus without complications Objective Vital Signs - Last 8 Hours Temp Pulse Resp BP Pulse Ox 12/20/18 07:52 17 98 12/20/18 03:48 98.5 F 64 15 169/75 96 Intake and Output 12/19/18 12/20/18 12/20/18 23:59 07:59 15:59 Intake Total 100 / 100 100 / 100 600 / 600 Output Total 250 / 250 200 / 200 Balance -150 / -150 -100 / -100 600 / 600 Intake: IV Fluids 100 / 100 100 / 100 Zosyn 3.375 GM In 0.9 % Sodium 100 / 100 100 / 100 Chloride (Mini-Bag +) 100 ML @ 25 mls/hr IVPB Q8H [facility] Rx#: [id number] Oral 0 / 0 0 / 0 600 / 600 Output: Urine 250 / 250 200 / 200 Other: Meal Liquid Diet Percent of Meal Consumed 0% Weight 104.236 kg Blood Glucose* 123 Patient Weight 12/20/18 23:59 Weight 104.236 kg - Labs 12/20/18 05:53 12/20/18 05:53 Diabetes panel 12/20/18 Range/Units 05:53 Sodium 144 (136-145) mEq/L Potassium 3.6 (3.5-5.1) mEq/L Chloride 104 (98-107) mEq/L Carbon Dioxide 32 H (23-29) mEq/L BUN 25 H (8-23) mg/dL Creatinine 0.94 (0.70-1.30) mg/dL Glucose 135 H (70-105) mg/dL Calcium 9.7 (8.6-10.3) mg/dL Calcium panel 12/20/18 Range/Units 05:53 Calcium 9.7 (8.6-10.3) mg/dL Phosphorus 2.2 L (2.7-4.5) mg/dL Pituitary panel 12/20/18 Range/Units 05:53 Sodium 144 (136-145) mEq/L Potassium 3.6 (3.5-5.1) mEq/L Chloride 104 (98-107) mEq/L Carbon Dioxide 32 H (23-29) mEq/L BUN 25 H (8-23) mg/dL Creatinine 0.94 (0.70-1.30) mg/dL Glucose 135 H (70-105) mg/dL Calcium 9.7 (8.6-10.3) mg/dL Adrenal panel 12/20/18 Range/Units 05:53 Sodium 144 (136-145) mEq/L Potassium 3.6 (3.5-5.1) mEq/L Chloride 104 (98-107) mEq/L Carbon Dioxide 32 H (23-29) mEq/L BUN 25 H (8-23) mg/dL Creatinine 0.94 (0.70-1.30) mg/dL Glucose 135 H (70-105) mg/dL Calcium 9.7 (8.6-10.3) mg/dL - Attending Attestation The patient is seen and evaluated on morning rounds. Lung exam demonstrates some wheezing. Findings are discussed clinical nurse practitioner. I have reviewed conical nurse practitioner and agreed contents evaluation. The patient is having flatus. He is started on clear liquids. He should be ready for discharge within 24 hours. Incision is clean and dry. Anthony Carter MD FACS
[2018-12-20] MEDS: Ipratropium/Albuterol Neb 3 ML IH SCH ×4 (07:50→22:10)
[2018-12-20] MEDS: Pantoprazole 40 MG VIAL IVP SCH (08:44)
[2018-12-20] MEDS: *HR* Metformin 500 MG TABLET PO SCH (08:45)
[2018-12-20] MEDS: Metoclopramide 10 MG/2 ML VIAL IVP SCH ×2 (08:51→11:50)
[2018-12-20] MEDS: Fluticasone Propionate Nasal 50 MCG/SPRAY BOTTLE NS SCH ×2 (11:50→20:16)
[2018-12-20] MEDS: 0.9 % Sodium Chloride 1,000 ML IVC SCH (11:51)
[2018-12-20] MEDS ORDERED: D5% in Water 1,000 ML IVC PRN (12:09)
[2018-12-20] MEDS ORDERED: *HR* Dextrose 50 % in Water (Syg) 50 ML SYRINGE IVP PRN (12:09)
[2018-12-20] MEDS ORDERED: Dextrose Gel 15 GM/37.5 ML TUBE PO PRN ×2 (12:09)
[2018-12-20] MEDS: Insulin LISPRO 300 UNITS/3 ML VIAL SQ SCH ×3 (13:21→21:03)
--- NOTE | 2018-12-20 15:25 | Discharge Summary ---
Addendum entered and electronically signed by Anthony Carter MD 12/25/18 07:44: The patient is seen and evaluated on morning rounds. His abdominal pain is completely gone. He will be transferred to rehabilitation facility today. Addendum entered and electronically signed by Christina Cano CNP 12/24/18 16:39: After waiting for insurance authorization, the patient is somewhat agitated and refuses to remain in the hospital or to go to rehab. He requests discharged to home with home healthcare. His son states someone will be with him and PT/OT can come to the home. They are adamant about discharge. We will begin discharge planning to home with home health PT/OT Original Note: <Christina Cano - Last Filed: 12/23/18 11:53> Orders not resulted at time of discharge: Pending orders 12/21/18 04:00 BMP [Basic Metabolic Panel] AM 0400 Complete Blood Count [HEME] AM 0400 12/22/18 04:00 BMP [Basic Metabolic Panel] AM 0400 Complete Blood Count [HEME] AM 0400 Date of Encounter: 12/23/18 Time of Encounter: 08:38 - Discharge Diagnosis (1) Perforation of colon as colonoscopy complication Priority: Primary Status: Resolved (2) HTN, goal below 130/80 Priority: Secondary Status: Chronic Comments: Acute on Chronic. Lisinopril increased (3) Leukocytosis Priority: Secondary Status: Resolved Qualifiers: Leukocytosis type: unspecified Qualified Code(s): D72.829 - Elevated white blood cell count, unspecified (4) Diabetes mellitus Priority: Secondary Status: Chronic Qualifiers: Diabetes mellitus type: type 2 Diabetes mellitus group home insulin use: without group home use Diabetes mellitus complication status: without complication Qualified Code(s): E11.9 - Type 2 diabetes mellitus without complications (5) Fluid overload Priority: Secondary Status: Suspected Qualifiers: Hypervolemia type: unspecified Qualified Code(s): E87.70 - Fluid overload, unspecified General Surgery Exam Initial Vital Signs Temp Pulse Resp BP Pulse Ox 98.3 F 84 11 141/85 90 12/17/18 10:41 12/17/18 10:41 12/17/18 10:41 12/17/18 10:41 12/17/18 10:41 Vital Signs Temp Pulse Resp BP Pulse Ox 12/23/18 10:27 81 126/69 12/23/18 09:59 20 92 12/23/18 07:02 97.6 F 82 20 188/68 92 12/23/18 05:48 97.7 F 72 16 185/84 92 12/23/18 03:56 17 94 12/22/18 23:43 98.3 F 81 18 164/86 92 12/22/18 21:30 18 92 12/22/18 19:44 98.0 F 77 16 191/77 92 12/22/18 16:07 16 93 12/22/18 15:26 98.3 F 65 16 185/92 93 12/22/18 11:52 97.5 F L 66 16 154/87 94 Intake and Output 12/22/18 12/23/18 12/23/18 23:59 07:59 15:59 Intake Total 500 / 500 100 / 100 100 / 100 Output Total 350 / 350 0 / 0 Balance 150 / 150 100 / 100 100 / 100 Intake: IV Fluids 100 / 100 100 / 100 100 / 100 Zosyn 3.375 GM In 0.9 % Sodium 100 / 100 100 / 100 100 / 100 Chloride (Mini-Bag +) 100 ML @ 25 mls/hr IVPB Q8H [facility] Rx#: [id number] Oral 400 / 400 0 / 0 Output: Urine 350 / 350 0 / 0 Other: Blood Glucose* 114 109 VITAL SIGNS: Reviewed. See [facility] GENERAL: In no apparent distress. HEENT: Normocephalic, atraumatic, pupils are equal and reactive, extraocular motions intact, oropharynx is pink and moist, No JVD noted. CHEST/RESPIRATORY: The thorax is free from signs of trauma. Lung sounds: decreased, course by basilar crackles CARDIAC: Regular rate and rhythm. Normal S1 and S2, without murmurs, gallops, or rubs. VASCULAR: No Edema. 2+ peripheral pulses. ABDOMEN: soft, expected postoperative tenderness, active bowel sounds INCISION: Surgical incision is clean, dry, and intact. There are no signs of cellulitis or infection noted. MUSCULOSKELETAL: generalized deconditioning noted. NEUROLOGIC EXAM: Alert and oriented x 3. Speech normal. Follows commands. PSYCHIATRIC: Mood normal. SKIN: No rash or lesions. - Hospital Course Hospital course: Mr. Higginbotham is a 73 year old male who presented on 12/17/2018 a perforated abdominal viscous following colonoscopy. He was taken to the operating room where he underwent an open repair of colon injury (perforation). His hospital course was complicated by fluid overload and hypertension which was treated with diuretics as well as adjusting his home blood pressure medications. He was noted to be unsteady on his feet and have generalized deconditioning noted. PT and OT were consulted and recommended swing bed placement. This was reviewed with the patient and his family and they were agreeable. We will begin discharge planning to [facility] swing bed with a follow-up in the office in approximately 2 weeks. - Time Spent with Patient Total time spent providing and/or coordinating discharge services: - Discharge Medications Home Medications: RX: Atorvastatin [Lipitor] 40 mg PO HS 12/17/18 [History] RX: Citalopram Hydrobromide [Citalopram HBr] 40 mg PO DAILY 12/17/18 [History] RX: Fenofibrate Nanocrystallized [Fenofibrate] 160 mg PO DAILY 12/17/18 [History] RX: Fluticasone Propionate Nasal [Flonase] 1 spray NS BID 12/17/18 [History] RX: Metformin HCl [Glucophage Xr] 1,000 mg PO BID 12/17/18 [History] RX: Docusate [Colace] 100 mg PO BID capsule 12/23/18 [Rx] RX: Lisinopril [Zestril] 20 mg PO DAILY tablet 12/23/18 [Rx] RX: Metoprolol [Lopressor] 50 mg PO BID tablet 12/23/18 [Rx] RX: OxyCODONE/APAP 5/325 [Percocet 5/325 MG] 1 each PO Q4HR PRN 7 Days #28 tablet 12/23/18 [Rx] RX: Simethicone [Gas-X] 80 mg PO TID PRN tab.chew 12/23/18 [Rx] Allergies/Adverse Reactions: Allergy/AdvReac Type Severity Reaction Status Date / Time No Known Allergies Allergy Verified 02/13/18 10:33 Date of admission: 12/17/18 14:08 Primary care physician: Yared Resendiz DO Consults: 12/19/18 09:13 Consult to Respiratory Therapy [CONS] Stat Reason for Consult: Aggressive pulm toileting. Accapella or accupap please Time Notified: 09:14 Call Completed: No 12/20/18 07:33 Consult to Occupational Therapy [CONS] Routine Comment: Evaluate, develop and implement POC Reason for Consult: Mobilization and d/c planning Does patient have active BEDREST order?: No Is patient medically & hemodynamically stable?: Yes Patient assessed for mobility or mobilized this visit?: No Consult to Physical Therapy [CONS] Routine Comment: Evaluate, develop and implement POC Reason for Consult: Mobilization and d/c planning Does patient have active BEDREST order?: No Is patient medically & hemodynamically stable?: Yes Patient assessed for mobility or mobilized this visit?: No 12/20/18 07:44 Consult to [employer] [CONS] Routine Reason for SW Consult: Placement versus home health. PT/OT ordered Discharging clinician: Anthony Cano) Anticipated date of discharge: 12/23/18 Labs on day of discharge: Labs from last 24 hours 12/20/18 12/20/18 12/20/18 05:53 05:53 05:31 WBC 10.5 RBC 3.59 L Hgb 10.0 L Hct 31.8 L MCV 88.6 MCH 27.9 L MCHC 31.4 L RDW 13.4 Plt Count 204 MPV 13.4 H Immature Gran % 0.4 Seg Neutrophils % 84.9 Lymphocytes % 8.8 Monocytes % 5.4 Eosinophils % 0.4 Basophils % 0.1 Neutrophils # 9.0 H Lymphocytes # 0.9 Monocytes # 0.6 Eosinophils # 0.0 Basophils # 0.0 Sodium 144 Potassium 3.6 Chloride 104 Carbon Dioxide 32 H BUN 25 H Creatinine 0.94 Est GFR ( Amer) > 60 Est GFR (Non-Af Amer) > 60 BUN/Creatinine Ratio 27 H Glucose 135 H POC Glucose 123 H Calculated Osmolality 304 H Calcium 9.7 Phosphorus 2.2 L Magnesium 1.9 12/20/18 00:39 WBC RBC Hgb Hct MCV MCH MCHC RDW Plt Count MPV Immature Gran % Seg Neutrophils % Lymphocytes % Monocytes % Eosinophils % Basophils % Neutrophils # Lymphocytes # Monocytes # Eosinophils # Basophils # Sodium Potassium Chloride Carbon Dioxide BUN Creatinine Est GFR ( Amer) Est GFR (Non-Af Amer) BUN/Creatinine Ratio Glucose POC Glucose 118 H Calculated Osmolality Calcium Phosphorus Magnesium - Impressions ITS Impressions Chest/Abdomen X-ray 12/17/18 10:51 IMPRESSION: 1. Right basilar atelectasis versus pneumonia. 2. No acute findings in the abdomen. D/ / Celia Carreno MD / Celia Carreno MD Interpreting Provider: Celia Carreno MD Abdomen/Pelvis CT 12/17/18 11:51 IMPRESSION: 1. Patchy trace pneumoperitoneum likely related to perforation of the anterior mid transverse colon. Associated edematous wall thickening in this area suggest superimposed colitis. Critical results were called by Dr. Ramírez Alas MD to Boris Clifton on 12/17/2018 at 13:17. 2. Trace free fluid is likely reactive. D/ / Ramírez Alas MD / Ramírez Alas MD Interpreting Provider: Ramírez Alas MD X-Ray 12/19/18 08:04 IMPRESSION: Suspected mild small bowel postoperative ileus in the right mid abdomen. No free air is seen. D/ / Alex Morrison MD / Alex Morrison MD Interpreting Provider: Alex Morrison MD Chest X-Ray 12/19/18 08:23 IMPRESSION: 1. Mild pulmonary vascular congestion. 2. Small right greater than left bilateral pleural effusions with probable underlying atelectasis or infiltrate. D/ / Dayana Kumar MD / Dayana Kumar MD Interpreting Provider: Dayana Kumar MD - Patient Status Disposition: Transfer Inpatient Rehab Fac Condition: Serious Functional capacity at discharge: uses cane/walker Overall status at discharge: patient is not back to baseline - Discharge Instructions Instructions: Perforated Bowel (GEN) Follow Up With: Yared Resendiz DO [Primary Care Provider] - Anthony Carter MD [Partnered Physician] - 01/07/19 10:10 am Additional Instructions: General Surgical Discharge Instructions 1. No pushing, pulling, or lifting greater than 15 lbs for 6 weeks. 2. You may shower beginning today, but no tub baths, soaking, or swimming for 2 weeks. 3. You may resume driving when you are off narcotics and are safe to react in a car. 4. Take ibuprofen every 8 hours for discomfort. If this does not relieve discomfort, you may take the as needed Percocet. Take narcotics as directed. Do not take more narcotics then directed and do not share your narcotics with any other person. Do not drink alcohol while on narcotics. 5. Take stool softeners (Colace) or a water based laxative (Miralax) while taking narcotics. You may hold for loose stools. 6. Report any fevers greater than 100.5F, increase abdominal discomfort, drainage that looks like pus, increased redness or pain at the surgical site, or any vomiting. 7. Report any pain in the calves, shortness of breath, or rapid heartbeat. 8. Follow-up in the office as directed. 9. If you were prescribed antibiotics, do not stop them without talking to your provider. 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 Higginbotham is a 73 year old male - Time Spent with Patient Total time spent providing and/or coordinating discharge services: Date of admission: 12/17/18 14:08 Primary care physician: Yared Resendiz DO Consults: 12/19/18 09:13 Consult to Respiratory Therapy [CONS] Stat Reason for Consult: Aggressive pulm toileting. Accapella or accupap please Time Notified: 09:14 Call Completed: No 12/20/18 07:33 Consult to Occupational Therapy [CONS] Routine Comment: Evaluate, develop and implement POC Reason for Consult: Mobilization and d/c planning Does patient have active BEDREST order?: No Is patient medically & hemodynamically stable?: Yes Patient assessed for mobility or mobilized this visit?: No Consult to Physical Therapy [CONS] Routine Comment: Evaluate, develop and implement POC Reason for Consult: Mobilization and d/c planning Does patient have active BEDREST order?: No Is patient medically & hemodynamically stable?: Yes Patient assessed for mobility or mobilized this visit?: No 12/20/18 07:44 Consult to [employer] [CONS] Routine Reason for SW Consult: Placement versus home health. PT/OT ordered 12/21/18 19:45 Consult to Hospitalist [CONS] Routine Consulting Provider: Hospitalist Reji Reason for Consult: Hypertension Time Notified: 19:40 Call Completed: Yes Labs on day of discharge: Labs from last 24 hours 12/23/18 12/23/18 12/23/18 11:01 11:01 07:01 WBC 10.5 RBC 4.22 Hgb 11.9 L Hct 36.3 L MCV 86.0 D MCH 28.2 MCHC 32.8 RDW 13.7 Plt Count 298 D MPV 13.4 H Immature Gran % 0.9 Seg Neutrophils % 74.7 Lymphocytes % 13.4 Monocytes % 9.5 Eosinophils % 1.3 Basophils % 0.2 Neutrophils # 7.8 Lymphocytes # 1.4 Monocytes # 1.0 Eosinophils # 0.1 Basophils # 0.0 Sodium 135 L Potassium 3.6 Chloride 97 L Carbon Dioxide 29 BUN 19 Creatinine 0.92 Est GFR ( Amer) > 60 Est GFR (Non-Af Amer) > 60 BUN/Creatinine Ratio 21 Glucose 229 H POC Glucose 109 H Calculated Osmolality 290 Calcium 9.5 Iron % Saturation Transferrin Triglycerides Cholesterol LDL Cholesterol, Calc VLDL Cholesterol, Calc HDL Cholesterol Cholesterol/HDL Ratio 12/22/18 12/22/18 12/22/18 17:14 16:01 11:55 WBC RBC Hgb Hct MCV MCH MCHC RDW Plt Count MPV Immature Gran % Seg Neutrophils % Lymphocytes % Monocytes % Eosinophils % Basophils % Neutrophils # Lymphocytes # Monocytes # Eosinophils # Basophils # Sodium Potassium 3.6 Chloride Carbon Dioxide BUN Creatinine Est GFR ( Amer) Est GFR (Non-Af Amer) BUN/Creatinine Ratio Glucose POC Glucose 140 H 170 H Calculated Osmolality Calcium Iron % Saturation Transferrin Triglycerides Cholesterol LDL Cholesterol, Calc VLDL Cholesterol, Calc HDL Cholesterol Cholesterol/HDL Ratio 12/22/18 12/22/18 12/22/18 08:07 08:07 07:13 WBC 8.1 RBC 4.08 L Hgb 11.4 L D Hct 37.7 MCV 92.4 MCH 27.9 L MCHC 30.2 L RDW 13.5 Plt Count 122 L MPV 13.8 H Immature Gran % 0.5 Seg Neutrophils % 74.1 Lymphocytes % 13.0 Monocytes % 10.4 Eosinophils % 1.6 Basophils % 0.4 Neutrophils # 6.0 Lymphocytes # 1.1 Monocytes # 0.8 Eosinophils # 0.1 Basophils # 0.0 Sodium 138 Potassium 3.2 L Chloride 103 Carbon Dioxide 28 BUN 15 Creatinine 0.71 Est GFR ( Amer) > 60 Est GFR (Non-Af Amer) > 60 BUN/Creatinine Ratio 21 Glucose 125 H POC Glucose 116 H Calculated Osmolality 288 Calcium 9.2 Iron 21 L % Saturation 8 L Transferrin 189 L Triglycerides 228 H Cholesterol 133 LDL Cholesterol, Calc 67 VLDL Cholesterol, Calc 46 H HDL Cholesterol 20 L Cholesterol/HDL Ratio 6.7 H - Impressions ITS Impressions Chest/Abdomen X-ray 12/17/18 10:51 IMPRESSION: 1. Right basilar atelectasis versus pneumonia. 2. No acute findings in the abdomen. D/ / Celia Carreno MD / Celia Carreno MD Interpreting Provider: Celia Carreno MD Abdomen/Pelvis CT 12/17/18 11:51 IMPRESSION: 1. Patchy trace pneumoperitoneum likely related to perforation of the anterior mid transverse colon. Associated edematous wall thickening in this area suggest superimposed colitis. Critical results were called by Dr. Ramírez Alas MD to Boris lCifton on 12/17/2018 at 13:17. 2. Trace free fluid is likely reactive. D/ / Ramírez Alas MD / Ramírez Alas MD Interpreting Provider: Ramírez Alas MD X-Ray 12/19/18 08:04 IMPRESSION: Suspected mild small bowel postoperative ileus in the right mid abdomen. No free air is seen. D/ / Alex Morrison MD / Alex Morrison MD Interpreting Provider: Alex Morrison MD Chest X-Ray 12/19/18 08:23 IMPRESSION: 1. Mild pulmonary vascular congestion. 2. Small right greater than left bilateral pleural effusions with probable underlying atelectasis or infiltrate. D/ / Dayana Kumar MD / Dayana Kumar MD Interpreting Provider: Dayana Kumar MD Chest X-Ray 12/22/18 08:40 IMPRESSION: Stable exam from 12/19/2018 with small bilateral pleural effusions, right worse than left, along with mild bibasilar atelectasis or infiltrates. D/ / 12/22/2018 11:27:55 Binh Sánchez MD / kin Interpreting Provider: Binh Sánchez MD - Attending Attestation The patient is seen and evaluated on morning rounds with resident. He is having bowel function. He is ready for extended care facility placement Anthony Carter MD FACS
[2018-12-21] MEDS: *HR* Metoprolol 5 MG/5 ML VIAL IVP PRN ×2 (02:56→11:07)
[2018-12-21] MEDS: Ipratropium/Albuterol Neb 3 ML IH SCH ×4 (03:49→22:21)
[2018-12-21] MEDS: Piperacillin/Tazobactam 3.375 GM in 0.9 % Sodium Chloride Mini Bag 100 ML IVPB SCH ×3 (04:59→22:18)
[2018-12-21] MEDS: *HR* Heparin 5,000 UNIT/ML VIAL SQ SCH ×2 (04:59→18:35)
[2018-12-21 05:17] LABS: Basophils % 0.1 %; Eosinophils # 0.1 K/mcL (0.0-0.6); Eosinophils % 0.9 %; Hematocrit 30.3 % (37.5-50.1); Hemoglobin 9.7 g/dL (12.9-16.9); Immature Granulocytes % 0.4 % (0-4); Lymphocytes % 11.5 %; Mean Corpuscular Volume 87.6 fL (83.0-100.0); Mean Platelet Volume 13.6 fL (9.4-12.4); Monocytes # 0.9 K/mcL (0.0-1.3); Monocytes % 10.4 %; Neutrophils # 6.5 K/mcL (1.6-8.9); Platelet Count 199 K/mcL (140-400); Red Blood Count 3.46 M/mcL (4.19-5.50); Red Cell Distribution Width 13.5 % (11.5-14.5); Segmented Neutrophils % 76.7 %
[2018-12-21 05:28] LABS: BUN/Creatinine Ratio 24 (6-26); Blood Urea Nitrogen 20 mg/dL (8-23); Calcium 9.1 mg/dL (8.6-10.3); Carbon Dioxide 32 mEq/L (23-29); Chloride 101 mEq/L (98-107); Glucose 135 mg/dL (70-105); Osmolality,Calculated 297 (280-300); Sodium 141 mEq/L (136-145); eGFR For Non-African Americans > 60 (> 60)
[2018-12-21] MEDS: *HR* Metformin 500 MG TABLET PO SCH (08:09)
[2018-12-21] MEDS: Pantoprazole 40 MG VIAL IVP SCH (08:10)
[2018-12-21] MEDS: Insulin LISPRO 300 UNITS/3 ML VIAL SQ SCH ×4 (08:17→23:38)
[2018-12-21] MEDS: Fluticasone Propionate Nasal 50 MCG/SPRAY BOTTLE NS SCH ×2 (08:18→19:42)
--- NOTE | 2018-12-21 13:20 | General Surgery Progress Note ---
Date of Encounter: 12/21/18 Time of Encounter: 13:18 - Assessment and Plan (1) Perforated abdominal viscus Current Visit: Yes Status: Acute We will continue the clear liquids. I have asked him to sit in the chair and ambulate 3 times daily. Subjective Narrative: This is a 73-year-old male status post colonoscopy with resultant perforation. He went to the operating room for repair. He had been progressing, however, he states he feels worse today than yesterday. He did have some abdominal pain in the upper abdomen this morning after he had his breakfast. He states he is a little better at this point. He does report flatus. Objective Vital Signs - Last 8 Hours Temp Pulse Resp BP Pulse Ox 12/21/18 10:49 98.1 F 63 18 190/93 95 12/21/18 10:42 16 93 12/21/18 08:38 96 12/21/18 07:18 97.7 F 63 18 184/82 96 Intake and Output 12/20/18 12/21/18 12/21/18 23:59 07:59 15:59 Intake Total 100 / 100 200 / 200 Output Total 250 / 250 550 / 550 830 / 830 Balance -150 / -150 -350 / -350 -830 / -830 Intake: IV Fluids 100 / 100 100 / 100 Zosyn 3.375 GM In 0.9 % Sodium 100 / 100 100 / 100 Chloride (Mini-Bag +) 100 ML @ 25 mls/hr IVPB Q8H [facility] Rx#: [id number] Oral 0 / 0 100 / 100 Output: Urine 250 / 250 550 / 550 830 / 830 Other: Meal Dinner Percent of Meal Consumed 0% # Bowel Movements 0 0 0 Weight 104.8 kg Blood Glucose* 108 134 182 Patient Weight 12/21/18 23:59 Weight 104.8 kg - General physical appearance well developed, well nourished - Eyes PERRL - ENT normal mucosa - Neck Neck exam: trachea midline - Respiratory normal expansion - Cardiovascular Cardiovascular exam: Present: RRR - Abdomen Abdomen: Present: bowel sounds present, distended - Incision Incision: Present: clean and dry, intact - Labs 12/21/18 04:57 12/21/18 04:57 Diabetes panel 12/21/18 Range/Units 04:57 Sodium 141 (136-145) mEq/L Potassium 3.0 L (3.5-5.1) mEq/L Chloride 101 (98-107) mEq/L Carbon Dioxide 32 H (23-29) mEq/L BUN 20 (8-23) mg/dL Creatinine 0.83 (0.70-1.30) mg/dL Glucose 135 H (70-105) mg/dL Calcium 9.1 (8.6-10.3) mg/dL Calcium panel 12/21/18 Range/Units 04:57 Calcium 9.1 (8.6-10.3) mg/dL Pituitary panel 12/21/18 Range/Units 04:57 Sodium 141 (136-145) mEq/L Potassium 3.0 L (3.5-5.1) mEq/L Chloride 101 (98-107) mEq/L Carbon Dioxide 32 H (23-29) mEq/L BUN 20 (8-23) mg/dL Creatinine 0.83 (0.70-1.30) mg/dL Glucose 135 H (70-105) mg/dL Calcium 9.1 (8.6-10.3) mg/dL Adrenal panel 12/21/18 Range/Units 04:57 Sodium 141 (136-145) mEq/L Potassium 3.0 L (3.5-5.1) mEq/L Chloride 101 (98-107) mEq/L Carbon Dioxide 32 H (23-29) mEq/L BUN 20 (8-23) mg/dL Creatinine 0.83 (0.70-1.30) mg/dL Glucose 135 H (70-105) mg/dL Calcium 9.1 (8.6-10.3) mg/dL Consult Discharge Plan - Plan Additional Instructions: General Surgical Discharge Instructions 1. No pushing, pulling, or lifting greater than 15 lbs for 6 weeks. 2. You may shower beginning today, but no tub baths, soaking, or swimming for 2 weeks. 3. You may resume driving when you are off narcotics and are safe to react in a car. 4. Take ibuprofen every 8 hours for discomfort. If this does not relieve discomfort, you may take the as needed Percocet. Take narcotics as directed. Do not take more narcotics then directed and do not share your narcotics with any other person. Do not drink alcohol while on narcotics. 5. Take stool softeners (Colace) or a water based laxative (Miralax) while taking narcotics. You may hold for loose stools. 6. Report any fevers greater than 100.5F, increase abdominal discomfort, drainage that looks like pus, increased redness or pain at the surgical site, or any vomiting. 7. Report any pain in the calves, shortness of breath, or rapid heartbeat. 8. Follow-up in the office as directed. 9. If you were prescribed antibiotics, do not stop them without talking to your provider. Increase activity as tolerated per PT/OT Referrals: Anthony Carter MD [Partnered Physician] - 01/07/19 10:10 am Yared Resendiz DO [Primary Care Provider] -
[2018-12-21] MEDS: *HR* OxyCODONE/APAP 5/325 TABLET PO PRN (19:39)
--- NOTE | 2018-12-22 00:01 | Internal Medicine Consult Note ---
Date of Encounter: 12/21/18 Time of Encounter: 22:00 - Assessment and plan (1) Abdominal pain Current Visit: Yes Status: Acute Assessment and plan: Acute abdominal pain r/t surgical repair for bowel perforation. Perforation repa ired. Pt. receiving abx for infection control. Oxycodone ordered for pain mgmt. Pt. is high risk for further morbidity and complications r/t recent sepsis criteria r/t bowel perforation and leukocytosis requiring IV abx, recent surgery, poorly controlled HTN, and risk factors of DM and obesity. Inpatient. Qualifiers: Abdominal location: generalized Qualified Code(s): R10.84 - Generalized abdominal pain (2) HTN (hypertension) Current Visit: Yes Status: Chronic Assessment and plan: Hx of chronic HTN. Monitor pt. and VS. Continue pts. PO metoprolol. Add IVP hydralazine w/parameters if needed. Qualifiers: Hypertension type: essential hypertension Qualified Code(s): I10 - Essential (primary) hypertension (3) HLD (hyperlipidemia) Current Visit: Yes Status: Chronic Assessment and plan: Hx of chronic HLD. Lipid panel in a.m. labs. Continue patient's Lipitor. Qualifiers: Hyperlipidemia type: pure hypercholesterolemia Qualified Code(s): E78.00 - Pure hypercholesterolemia, unspecified; E78.0 - Pure hypercholesterolemia (4) Prostate cancer Current Visit: Yes Status: Chronic Assessment and plan: Hx of chronic prostate cancer. Pt. reports he is following up as OP for txs. (5) CAD (coronary artery disease) Current Visit: Yes Status: Chronic Assessment and plan: Hx of chronic CAD and triple bypass. Continuous cardiac telemetry. Continue patient's HTN and HLD medications. Qualifiers: Coronary Disease-Associated Artery/Lesion type: unspecified vessel or lesion type [place] vs. transplanted heart: [place] heart Associated angina: angina presence unspecified Qualified Code(s): I25.10 - Atherosclerotic heart disease of [place] coronary artery without angina pectoris (6) Diabetes mellitus Current Visit: Yes Status: Chronic Assessment and plan: Hx of chronic DM controlled by metformin. Hold metformin. Administer low-dose correction sliding scale insulin with hypoglycemic protocol. BG checks before meals at bedtime. A1c in a.m. labs. Qualifiers: Diabetes mellitus type: type 2 Diabetes mellitus watermelon harvesting supervisor insulin use: without watermelon harvesting supervisor use Diabetes mellitus complication status: without complication Qualified Code(s): E11.9 - Type 2 diabetes mellitus without complications (7) Depression Current Visit: Yes Status: Chronic Assessment and plan: Hx of chronic depression. Continue Citalopram. Qualifiers: Depression Type: unspecified Qualified Code(s): F32.9 - Major depressive disorder, single episode, unspecified (8) Perforation of colon as colonoscopy complication Current Visit: Yes Status: Resolved Assessment and plan: Resolved. Status post-repair. Mild abdominal pain on exam. (9) Leukocytosis Current Visit: Yes Status: Resolved Assessment and plan: Resolved. 8.5 today, down from 26.2 on 12/17/18. Qualifiers: Leukocytosis type: unspecified Qualified Code(s): D72.829 - Elevated white blood cell count, unspecified (10) DVT prophylaxis Current Visit: Yes Status: Acute Assessment and plan: SCDs on bilateral LEs. - Time Spent With Patient Total time spent is greater than 50% in coordination of care (as documented) at patient's floor/unit and/or counseling patient: Greater than 35 minutes Internal Medicine - CN: HPI - Data of Consult Patient: new to practice Requesting Physician: Anthony Carter MD - Consult Narrative Reason for consult: Medical management of HTN History of present illness: Mr. Higginbotham is a 73 year old male w/PMH of prostate cancer, diabetes, HTN, HLD, CAD, and depression present for Hospitalist consult for medical management of HTN. Patient is status post colonoscopy with resultant perforation. Perforation repaired. Patient has history of hypertension and is currently not well controlled. BP at 13:58 186/77, 203/91 at 18:28. Pt. had initial leukocytosis r/t colon perforation of 26.2 on 12/17/18.WBC has resolved to 8.5 as of today. Pt. is afebrile and reports mild abdominal pain but denies chest pain, shortness of breath, headache, changes in vision, unusual bleeding, numbness, tingling, dizziness, lightheadedness, pre-syncope, or syncope. Past Med Surg Social Fam HX - Past Medical History Source: patient, old records reviewed Medical history: cancer (Prostate), diabetes, hyperlipidemia, hypertension Additional medical history: sleep apnea Psychiatric history: depression - Past Surgical History Surgical History: coronary bypass (CABG) (Triple) Additional surgical history: colonoscopy - Social History Smoking Status: Former smoker Packs per day: 1 PPD - Reports quitting 10 years ago Smokeless Tobacco Status: No Alcohol use: none Drug use: none Current living situation: Home Activity Level: Independent ambulation Recent Out of Country Travel Within the Last 8 Weeks: No Exposure or Possible Exposure to Illness During Travel: No - Family History Father Race: Living Status: Age at : 80 Cause of : Melanoma Hx Family Cardiac Disorders: Yes (CABG) Hx Family Cancer: Yes (Melanoma) Mother Race: Living Status: Still Living Hx Family Medical Disorders: No Brother Race: Living Status: Age at : 69 Cause of : Kidney cancer Hx Family Cancer: Yes (Kidney) Sister Race: Living Status: Still Living Hx Family Medical Disorders: No - Constitutional Constitutional: as per HPI - EENT Eyes: as per HPI Ears: as per HPI Nose, mouth and throat: as per HPI - Breasts Breasts: as per HPI - Cardiovascular Cardiovascular ROS IM: as per HPI - Respiratory Respiratory: as per HPI - Gastrointestinal Gastrointestinal: as per HPI, abdominal pain - Genitourinary Genitourinary ROS male: as per HPI - Musculoskeletal Musculoskeletal ROS IM: as per HPI - Integumentary Integumentary IM: as per HPI - Neurological Neurological ROS: as per HPI - Psychiatric Psychiatric: as per HPI, depression - Endocrine Endocrine IM: as per HPI - Hematologic/Lymphatic Hematologic/Lymphatic: as per HPI - Allergic/Immunologic Allergic/Immunologic: as per HPI Internal Medicine - CN: Meds Atorvastatin [Lipitor] 40 mg PO HS 12/17/18 [History] Citalopram Hydrobromide [Citalopram HBr] 40 mg PO DAILY 12/17/18 [History] Fenofibrate Nanocrystallized [Fenofibrate] 160 mg PO DAILY 12/17/18 [History] Fluticasone Propionate Nasal [Flonase] 1 spray NS BID 12/17/18 [History] Metformin HCl [Glucophage Xr] 1,000 mg PO BID 12/17/18 [History] Metoprolol [Lopressor] 25 mg PO BID 12/17/18 [History] Allergy/AdvReac Type Severity Reaction Status Date / Time No Known Allergies Allergy Verified 02/13/18 10:33 Hospitalist - CN: Exam - Constitutional Vitals: Temp Pulse Resp BP Pulse Ox 98.2 F 79 18 199/73 93 02/02/19 23:13 12/21/18 23:13 12/21/18 23:13 12/21/18 23:13 12/21/18 23:13 General appearance IM: Present: mild distress (Abdominal pain), A&O X 3, obese, answers questions appropriately Exam: Patient examined at bedside. Patient was resting in bed and reported only mild abdominal pain. Patient denies any other symptoms or complaints at this time. VS: 98.2F temp, HR 79, RR 18, BP 199/73, SPO2 93% on 3L via NC. - Head Head exam: Present: atraumatic - Eye Eye exam: Present: PERRL, conjuntiva pink Pupils: Present: normal accommodation, PERRL - ENT ENT exam: Present: normal exam - Neck Neck exam general surgery: Present: full ROM, normal inspection - Respiratory Respiratory exam: Present: CTAB - Cardiovascular Cardiovascular exam IM: Present: RRR, +S1, +S2 - GI/Abdominal GI/Abdominal exam IM: Present: soft, tenderness, no peritoneal signs - Rectal Rectal exam: Present: deferred - Additional comments: exam deferred. - Extremities Exam Extremities exam IM: Present: warm, radial pulses palpable and symmetrical - Back Exam Back exam: Present: normal inspection - Neurological Exam Neurological exam: Present: alert, CN II-XII intact, oriented X3, no focal deficits, strengths equal and symetr throughout - Psychiatric Psychiatric exam: Present: normal affect, normal mood - Skin Skin exam IM: Present: dry, intact Internal Medicine - CN: Reslt - Labs CBC & Chem 7: 12/21/18 04:57 12/21/18 04:57 Labs: Short CBC 12/21/18 Range/Units 04:57 WBC 8.5 (4.3-11.1) K/mcL Hgb 9.7 L (12.9-16.9) g/dL Hct 30.3 L (37.5-50.1) % Plt Count 199 (140-400) K/mcL Neutrophils # 6.5 (1.6-8.9) K/mcL BMP 12/21/18 04:57 Sodium 141 Potassium 3.0 L Chloride 101 Carbon Dioxide 32 H BUN 20 Creatinine 0.83 Glucose 135 H Calcium 9.1 - ABG Interpretation ABG results: PT/INR, D-dimer PT 11.8 Seconds (9.4-12.1) 12/17/18 11:29 Consult Discharge Plan - Plan Additional Instructions: General Surgical Discharge Instructions 1. No pushing, pulling, or lifting greater than 15 lbs for 6 weeks. 2. You may shower beginning today, but no tub baths, soaking, or swimming for 2 weeks. 3. You may resume driving when you are off narcotics and are safe to react in a car. 4. Take ibuprofen every 8 hours for discomfort. If this does not relieve discomfort, you may take the as needed Percocet. Take narcotics as directed. Do not take more narcotics then directed and do not share your narcotics with any other person. Do not drink alcohol while on narcotics. 5. Take stool softeners (Colace) or a water based laxative (Miralax) while taking narcotics. You may hold for loose stools. 6. Report any fevers greater than 100.5F, increase abdominal discomfort, drainage that looks like pus, increased redness or pain at the surgical site, or any vomiting. 7. Report any pain in the calves, shortness of breath, or rapid heartbeat. 8. Follow-up in the office as directed. 9. If you were prescribed antibiotics, do not stop them without talking to your provider. Increase activity as tolerated per PT/OT Referrals: Anthony Carter MD [Partnered Physician] - 01/07/19 10:10 am Yared Resendiz DO [Primary Care Provider] -
[2018-12-22] MEDS: Ipratropium/Albuterol Neb 3 ML IH SCH ×4 (04:17→21:30)
[2018-12-22] MEDS: *HR* Heparin 5,000 UNIT/ML VIAL SQ SCH ×2 (05:45→18:18)
[2018-12-22] MEDS: Piperacillin/Tazobactam 3.375 GM in 0.9 % Sodium Chloride Mini Bag 100 ML IVPB SCH ×3 (05:46→21:06)
[2018-12-22] MEDS: Insulin LISPRO 300 UNITS/3 ML VIAL SQ SCH ×4 (08:27→21:05)
[2018-12-22 08:43] LABS: BUN/Creatinine Ratio 21 (6-26); Blood Urea Nitrogen 15 mg/dL (8-23); Calcium 9.2 mg/dL (8.6-10.3); Carbon Dioxide 28 mEq/L (23-29); Chloride 103 mEq/L (98-107); Glucose 125 mg/dL (70-105); Osmolality,Calculated 288 (280-300); Potassium 3.2 mEq/L (3.5-5.1); Sodium 138 mEq/L (136-145); eGFR For Non-African Americans > 60 (> 60)
--- NOTE | 2018-12-22 08:46 | Internal Med Progress Note ---
Hospitalist Progress Note - Encounter Date of Encounter: 12/22/18 Time of Encounter: 11:00 - Subjective Interval History: Patient is a 73-year-old male with past medical history significant for hypertension, hyperlipidemia, and CAD being managed for perforation repair secondary to colonoscopy per general surgery team. Hospitalist service was consulted the evening of 12/21/18 due to uncontrolled hypertension. Review of the chart does reveal persistently uncontrolled hypertension during hospital stay. In addition patient also with acute hypoxic respiratory failure requiring 3-4 L of nasal cannula to maintain sats in the low 90s Patient also appears to be hypokalemic as well as being anemic Nurse reports this morning that patient overall "does not seem to be doing well." On my exam of the patient later in the morning patient reports a feeling better He remains on supplemental oxygenation - Exam Vitals: Temp Pulse Resp BP Pulse Ox 97.7 F 72 18 177/86 93 12/22/18 07:10 12/22/18 07:10 12/22/18 07:10 12/22/18 07:10 12/22/18 07:10 Exam: Gen.: Nonacute distress, alert and oriented 3 ENT: Mucosal membranes moist Respiratory: Lungs are clear to auscultation bilaterally without any wheezing rhonchi or rales Cardiovascular: Normal S1 and S2 regular rate rhythm no murmurs rubs or gallops Abdomen: Soft, nontender and nondistended with positive bowel sounds Extremities: No lower extremity edema Skin: Normal color - Assessment and Plan (1) HTN (hypertension) Current Visit: Yes Status: Chronic Assessment and Plan: Review of the chart does reveal persistently uncontrolled hypertension during hospital stay. Will continue patient on metoprolol tartrate 25 mg twice daily Will change lisinopril 5 mg twice daily to lisinopril 20 mg daily If no improvement will consider adding calcium channel kourtney (2) Acute respiratory failure with hypoxia Current Visit: Yes Status: Acute Assessment and Plan: Per nursing staff patient did not require supplemental oxygen prior to admission but now requiring 3-4 L to maintain sats in the low 90s Unclear etiology for acute hypoxic respiratory failure Repeat chest x-ray order in addition to ABG for further evaluation. (3) Hypokalemia Current Visit: Yes Status: Acute Assessment and Plan: Patient also with a potassium of 3.0 this morning Potassium supplementation order and will monitor (4) Anemia Current Visit: Yes Status: Acute Assessment and Plan: In addition patient noted to be anemic with a hemoglobin ranging from 9.7-12.7 during this admission; hemoglobin 11.4 this morning Iron studies ordered Continue to monitor (5) Diabetes mellitus Current Visit: Yes Status: Chronic Assessment and Plan: Controlled; A1c 7.9 on 10/23/18 Continue sliding scale insulin (6) HLD (hyperlipidemia) Current Visit: Yes Status: Chronic Assessment and Plan: Continue statin (7) CAD (coronary artery disease) Current Visit: Yes Status: Chronic Assessment and Plan: Patient with a history of CABG 3 Continue beta kourtney, statin and LAURE inhibitor (8) Depression Current Visit: Yes Status: Chronic Assessment and Plan: Continue Citalopram. (9) Prostate cancer Current Visit: Yes Status: Chronic Assessment and Plan: Hx of chronic prostate cancer. Pt. reports he is following up as OP for txs. (10) Perforation of colon as colonoscopy complication Current Visit: Yes Status: Resolved Assessment and Plan: Resolved. Status post-repair. General surgery managing DVT Prophylaxis: Heparin subcutaneous - Time Spent with Patient Total time spent is greater than 50% in coordination of care (as documented) at patient's floor/unit and/or counseling patient: Internal Medicine: Result - Labs CBC & Chem 7: 12/22/18 08:07 12/22/18 08:07 - ABG Interpretation ABG results: PT/INR, D-dimer PT 11.8 Seconds (9.4-12.1) 12/17/18 11:29 Consult Discharge Plan - Plan Additional Instructions: General Surgical Discharge Instructions 1. No pushing, pulling, or lifting greater than 15 lbs for 6 weeks. 2. You may shower beginning today, but no tub baths, soaking, or swimming for 2 weeks. 3. You may resume driving when you are off narcotics and are safe to react in a car. 4. Take ibuprofen every 8 hours for discomfort. If this does not relieve discomfort, you may take the as needed Percocet. Take narcotics as directed. Do not take more narcotics then directed and do not share your narcotics with any other person. Do not drink alcohol while on narcotics. 5. Take stool softeners (Colace) or a water based laxative (Miralax) while taking narcotics. You may hold for loose stools. 6. Report any fevers greater than 100.5F, increase abdominal discomfort, drainage that looks like pus, increased redness or pain at the surgical site, or any vomiting. 7. Report any pain in the calves, shortness of breath, or rapid heartbeat. 8. Follow-up in the office as directed. 9. If you were prescribed antibiotics, do not stop them without talking to your provider. 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 transplanted heart: [place] heart Associated angina: angina presence unspecified Qualified Code(s): I25.10 - Atherosclerotic heart disease of [place] coronary artery without angina pectoris (8) Depression Qualifiers: Depression Type: unspecified Qualified Code(s): F32.9 - Major depressive disorder, single episode, unspecified
[2018-12-22] MEDS: Pantoprazole 40 MG VIAL IVP SCH (08:52)
[2018-12-22] MEDS: Lisinopril 20 MG TABLET PO SCH ×2 (08:52→09:00)
[2018-12-22] MEDS: Fluticasone Propionate Nasal 50 MCG/SPRAY BOTTLE NS SCH ×2 (08:56→21:07)
[2018-12-22 10:29] LABS: ABG Base Excess 4 mEq/L (-2 to 3); ABG HCO3 28 mEq/L (21-27); ABG Oxygen Saturation 97 % (95-98); ABG PCO2 38 mmHg (35-45); ABG PH 7.47 pH Units (7.32-7.45); ABG PO2 82 mmHg (85-104); ABG TCO2 29 mEq/L (20-26)
[2018-12-22 10:58] LABS: Transferrin 189 mg/dL (203-362)
[2018-12-22 11:00] LABS: % Iron Saturation 8 % (20-55); Iron 21 mcg/dL (65-175)
--- NOTE | 2018-12-22 11:32 | General Surgery Progress Note ---
Date of Encounter: 12/22/18 Time of Encounter: 11:31 - Assessment and Plan (1) Perforated abdominal viscus Current Visit: Yes Status: Acute We will continue the clear liquids. I have asked him to sit in the chair and ambulate 3 times daily. Subjective Narrative: This is 73-year-old male status post colon perforation from colonoscopy. He underwent repair. His recovery is been somewhat slow. He states he did sleep better last night. He also had a slight headache. He denies any significant abdominal pain, however he does not want to advance his diet at this point. Objective Vital Signs - Last 8 Hours Temp Pulse Resp BP Pulse Ox 12/22/18 11:02 16 96 12/22/18 08:03 93 12/22/18 07:10 97.7 F 72 18 177/86 93 12/22/18 04:18 16 94 12/22/18 03:51 98.0 F 62 18 189/92 95 Intake and Output 12/21/18 12/22/18 12/22/18 23:59 07:59 15:59 Intake Total 200 / 200 340 / 340 Output Total 600 / 600 350 / 350 Balance -400 / -400 -10 / -10 Intake: IV Fluids 100 / 100 100 / 100 Zosyn 3.375 GM In 0.9 % Sodium 100 / 100 100 / 100 Chloride (Mini-Bag +) 100 ML @ 25 mls/hr IVPB Q8H AIME Rx#: [id number] Oral 100 / 100 240 / 240 Output: Urine 600 / 600 350 / 350 Other: Meal clear dinner Percent of Meal Consumed 0% # Bowel Movements 0 0 Weight 104.4 kg Blood Glucose* 123 116 Patient Weight 12/22/18 23:59 Weight 104.4 kg - General physical appearance well developed, no distress - Neck Neck exam: trachea midline - Respiratory other (Patient appears to have conversational dyspnea) - Cardiovascular Cardiovascular exam: Present: RRR - Abdomen Abdomen: Present: bowel sounds present - Neurologic CN 2-12 grossly intact - Labs 12/22/18 08:07 12/22/18 08:07 Diabetes panel 12/22/18 Range/Units 08:07 Sodium 138 (136-145) mEq/L Potassium 3.2 L (3.5-5.1) mEq/L Chloride 103 (98-107) mEq/L Carbon Dioxide 28 (23-29) mEq/L BUN 15 (8-23) mg/dL Creatinine 0.71 (0.70-1.30) mg/dL Glucose 125 H (70-105) mg/dL Calcium 9.2 (8.6-10.3) mg/dL Calcium panel 12/22/18 Range/Units 08:07 Calcium 9.2 (8.6-10.3) mg/dL Pituitary panel 12/22/18 Range/Units 08:07 Sodium 138 (136-145) mEq/L Potassium 3.2 L (3.5-5.1) mEq/L Chloride 103 (98-107) mEq/L Carbon Dioxide 28 (23-29) mEq/L BUN 15 (8-23) mg/dL Creatinine 0.71 (0.70-1.30) mg/dL Glucose 125 H (70-105) mg/dL Calcium 9.2 (8.6-10.3) mg/dL Adrenal panel 12/22/18 Range/Units 08:07 Sodium 138 (136-145) mEq/L Potassium 3.2 L (3.5-5.1) mEq/L Chloride 103 (98-107) mEq/L Carbon Dioxide 28 (23-29) mEq/L BUN 15 (8-23) mg/dL Creatinine 0.71 (0.70-1.30) mg/dL Glucose 125 H (70-105) mg/dL Calcium 9.2 (8.6-10.3) mg/dL Consult Discharge Plan - Plan Additional Instructions: General Surgical Discharge Instructions 1. No pushing, pulling, or lifting greater than 15 lbs for 6 weeks. 2. You may shower beginning today, but no tub baths, soaking, or swimming for 2 weeks. 3. You may resume driving when you are off narcotics and are safe to react in a car. 4. Take ibuprofen every 8 hours for discomfort. If this does not relieve discomfort, you may take the as needed Percocet. Take narcotics as directed. Do not take more narcotics then directed and do not share your narcotics with any other person. Do not drink alcohol while on narcotics. 5. Take stool softeners (Colace) or a water based laxative (Miralax) while taking narcotics. You may hold for loose stools. 6. Report any fevers greater than 100.5F, increase abdominal discomfort, drainage that looks like pus, increased redness or pain at the surgical site, or any vomiting. 7. Report any pain in the calves, shortness of breath, or rapid heartbeat. 8. Follow-up in the office as directed. 9. If you were prescribed antibiotics, do not stop them without talking to your provider. Increase activity as tolerated per PT/OT Referrals: Anthony Carter MD [Partnered Physician] - 01/07/19 10:10 am Yared Resendiz DO [Primary Care Provider] -
[2018-12-22] MEDS: OXYCODONE Oral CONC 10 MG/0.5 ML ORAL.SYG SL PRN (22:22)
[2018-12-23] MEDS: Ipratropium/Albuterol Neb 3 ML IH SCH ×4 (03:56→22:10)
[2018-12-23] MEDS: Piperacillin/Tazobactam 3.375 GM in 0.9 % Sodium Chloride Mini Bag 100 ML IVPB SCH (05:14)
[2018-12-23] MEDS: *HR* Heparin 5,000 UNIT/ML VIAL SQ SCH ×2 (05:15→16:26)
[2018-12-23] MEDS: Insulin LISPRO 300 UNITS/3 ML VIAL SQ SCH ×4 (07:25→20:42)
[2018-12-23] MEDS ORDERED: Furosemide 40 MG/4 ML VIAL IVP ONE (08:36)
[2018-12-23] MEDS: Lisinopril 20 MG TABLET PO SCH (08:43)
[2018-12-23] MEDS: Pantoprazole 40 MG VIAL IVP SCH (08:43)
--- NOTE | 2018-12-23 08:45 | Internal Med Progress Note ---
Hospitalist Progress Note - Encounter Date of Encounter: 12/23/18 Time of Encounter: 11:00 - Subjective Interval History: Patient is a 73-year-old male with past medical history significant for hypertension, hyperlipidemia, and CAD being managed for perforation repair secondary to colonoscopy per general surgery team. Hospitalist service was consulted the evening of 12/21/18 due to uncontrolled hypertension. Patient's dose of lisinopril was increased on 12/22/18 and continued current dose of metoprolol without any improvement in blood pressures overnight Will therefore increase dose of beta kourtney today and monitor - Exam Vitals: Temp Pulse Resp BP Pulse Ox 97.6 F 82 20 188/68 92 12/23/18 07:02 12/23/18 07:02 12/23/18 07:02 12/23/18 07:02 12/23/18 07:02 Exam: Gen.: Nonacute distress, alert and oriented 3 ENT: Mucosal membranes moist Respiratory: Lungs are clear to auscultation bilaterally without any wheezing rhonchi or rales Cardiovascular: Normal S1 and S2 regular rate rhythm no murmurs rubs or gallops Abdomen: Soft, nontender and nondistended with positive bowel sounds Extremities: No lower extremity edema Skin: Normal color - Assessment and Plan (1) HTN (hypertension) Current Visit: Yes Status: Chronic Assessment and Plan: Review of the chart does reveal persistently uncontrolled hypertension during hospital stay. Hospitalist service was consulted the evening of 12/21/18 due to uncontrolled hypertension. Patient's dose of lisinopril was increased on 12/22/18 and continued current dose of metoprolol without any improvement in blood pressures overnight Will therefore increase dose of metoprolol to 50 mg twice daily and continued increased dose of lisinopril 20 mg daily started on 12/22/18 Will monitor (2) Acute respiratory failure with hypoxia Current Visit: Yes Status: Acute Assessment and Plan: Patient still requiring a metal oxygenation this morning at 2 L with O2 sats in the low 90s ABG on 12/22/18 revealed a pH of 7.4 with PCO2 of 38 and a PaO2 of 82 Chest x-ray on 12/21/18 revealed stable exam from 12/19/18 with small bilateral pleural effusions in addition to mild bibasilar atelectasis or infiltrates Patient afebrile and without leukocytosis Will wean O2 as tolerates (3) Hypokalemia Current Visit: Yes Status: Acute Assessment and Plan: Resolved with potassium supplementation Continue to monitor (4) Anemia Current Visit: Yes Status: Acute Assessment and Plan: In addition patient noted to be anemic with a hemoglobin ranging from 9.7-12.7 during this admission; hemoglobin was 11.4 on 12/22/18 Patient found to be iron deficient on iron studies Will initiate ferrous sulfate Continue to monitor (5) Diabetes mellitus Current Visit: Yes Status: Chronic Assessment and Plan: Controlled; A1c 7.9 on 10/23/18 Continue sliding scale insulin (6) HLD (hyperlipidemia) Current Visit: Yes Status: Chronic Assessment and Plan: Continue statin (7) CAD (coronary artery disease) Current Visit: Yes Status: Chronic Assessment and Plan: Patient with a history of CABG 3 Continue beta kourtney, statin and LAURE inhibitor (8) Depression Current Visit: Yes Status: Chronic Assessment and Plan: Continue Citalopram. (9) Prostate cancer Current Visit: Yes Status: Chronic Assessment and Plan: Hx of chronic prostate cancer. Pt. reports he is following up as OP for txs. (10) Perforation of colon as colonoscopy complication Current Visit: Yes Status: Resolved Assessment and Plan: Resolved. Status post-repair. General surgery managing DVT Prophylaxis: Heparin subcutaneous - Time Spent with Patient Total time spent is greater than 50% in coordination of care (as documented) at patient's floor/unit and/or counseling patient: Internal Medicine: Result - Labs CBC & Chem 7: 12/23/18 11:01 12/23/18 11:01 Labs: Short CBC 12/22/18 Range/Units 08:07 WBC 8.1 (4.3-11.1) K/mcL Hgb 11.4 L D (12.9-16.9) g/dL Hct 37.7 (37.5-50.1) % Plt Count 122 L (140-400) K/mcL Neutrophils # 6.0 (1.6-8.9) K/mcL BMP 12/22/18 12/22/18 08:07 17:14 Sodium 138 Potassium 3.2 L 3.6 Chloride 103 Carbon Dioxide 28 BUN 15 Creatinine 0.71 Glucose 125 H Calcium 9.2 - ABG Interpretation ABG results: ABG ABG pH 7.47 pH Units (7.32-7.45) H 12/22/18 10:26 ABG pCO2 38 mmHg (35-45) 12/22/18 10:26 ABG pO2 82 mmHg (85-104) L 12/22/18 10:26 ABG O2 Saturation 97 % (95-98) 12/22/18 10:26 PT/INR, D-dimer PT 11.8 Seconds (9.4-12.1) 12/17/18 11:29 - Impressions Impressions Chest X-Ray 12/22/18 08:40 IMPRESSION: Stable exam from 12/19/2018 with small bilateral pleural effusions, right worse than left, along with mild bibasilar atelectasis or infiltrates. D/ / 12/22/2018 11:27:55 Binh Sánchez MD / kin Interpreting Provider: Binh Sánchez MD Consult Discharge Plan - Plan Instructions: Perforated Bowel (GEN) Additional Instructions: General Surgical Discharge Instructions 1. No pushing, pulling, or lifting greater than 15 lbs for 6 weeks. 2. You may shower beginning today, but no tub baths, soaking, or swimming for 2 weeks. 3. You may resume driving when you are off narcotics and are safe to react in a car. 4. Take ibuprofen every 8 hours for discomfort. If this does not relieve discomfort, you may take the as needed Percocet. Take narcotics as directed. Do not take more narcotics then directed and do not share your narcotics with any other person. Do not drink alcohol while on narcotics. 5. Take stool softeners (Colace) or a water based laxative (Miralax) while taking narcotics. You may hold for loose stools. 6. Report any fevers greater than 100.5F, increase abdominal discomfort, drainage that looks like pus, increased redness or pain at the surgical site, or any vomiting. 7. Report any pain in the calves, shortness of breath, or rapid heartbeat. 8. Follow-up in the office as directed. 9. If you were prescribed antibiotics, do not stop them without talking to your provider. Increase activity as tolerated per PT/OT Referrals: Anthony Carter MD [Partnered Physician] - 01/07/19 10:10 am Yared Resendiz DO [Primary Care Provider] - (1) HTN (hypertension) Qualifiers: Hypertension type: essential hypertension Qualified Code(s): I10 - Essential (primary) hypertension (5) Diabetes mellitus Qualifiers: Diabetes mellitus type: type 2 Diabetes mellitus terminal computer operator insulin use: without terminal computer operator use Diabetes mellitus complication status: without complication Qualified Code(s): E11.9 - Type 2 diabetes mellitus without complications (6) HLD (hyperlipidemia) Qualifiers: Hyperlipidemia type: pure hypercholesterolemia Qualified Code(s): E78.00 - Pure hypercholesterolemia, unspecified; E78.0 - Pure hypercholesterolemia (7) CAD (coronary artery disease) Qualifiers: Coronary Disease-Associated Artery/Lesion type: unspecified vessel or lesion type [place] vs. transplanted heart: [place] heart Associated angina: angina presence unspecified Qualified Code(s): I25.10 - Atherosclerotic heart disease of [place] coronary artery without angina pectoris (8) Depression Qualifiers: Depression Type: unspecified Qualified Code(s): F32.9 - Major depressive disorder, single episode, unspecified
[2018-12-23 08:56] LABS: Chol/HDL Ratio 6.7 (0-4.9); Cholesterol 133 mg/dL (< 200); HDL Cholesterol 20 mg/dL (40-59); LDL Cholesterol,Calculated 67 mg/dL (0-99); Triglycerides 228 mg/dL (< 150)
[2018-12-23] MEDS: Fluticasone Propionate Nasal 50 MCG/SPRAY BOTTLE NS SCH ×2 (09:04→20:25)
--- NOTE | 2018-12-23 11:45 | Physician Discharge Referral ---
Addendum entered and electronically signed by Christina Cano CNP 12/24/18 16:40: ECF referral document cancelled. Pt to d/c with [facility] Original Note: ExtendedCare Referral Info Transfer To: [facility] Provider in Charge: Dr. Anthony Carter Provider in Charge after Transfer: Other ([employer] Paralegal or rehab aide) Institutional Level of Care: Intermediate - Diagnosis (1) Perforation of colon as colonoscopy complication Priority: Primary Status: Resolved (2) HTN, goal below 130/80 Priority: Secondary Status: Chronic (3) Leukocytosis Priority: Secondary Status: Resolved (4) Diabetes mellitus Priority: Secondary Status: Chronic (5) Fluid overload Priority: Secondary Status: Suspected Expected Duration of Placement: 7-10 days Prognosis: Good Aware of Diagnosis: Patient, Family Aware of Prognosis: Patient, Family - Transfer Medications Home Medications: Atorvastatin [Lipitor] 40 mg PO HS 12/17/18 [History] Citalopram Hydrobromide [Citalopram HBr] 40 mg PO DAILY 12/17/18 [History] Fenofibrate Nanocrystallized [Fenofibrate] 160 mg PO DAILY 12/17/18 [History] Fluticasone Propionate Nasal [Flonase] 1 spray NS BID 12/17/18 [History] Metformin HCl [Glucophage Xr] 1,000 mg PO BID 12/17/18 [History] Docusate [Colace] 100 mg PO BID capsule 12/23/18 [Rx] Lisinopril [Zestril] 20 mg PO DAILY tablet 12/23/18 [Rx] Metoprolol [Lopressor] 50 mg PO BID tablet 12/23/18 [Rx] OxyCODONE/APAP 5/325 [Percocet 5/325 MG] 1 each PO Q4HR PRN 7 Days #28 tablet 12/23/18 [Rx] Simethicone [Gas-X] 80 mg PO TID PRN tab.chew 12/23/18 [Rx] Allergies/Adverse Reactions: Allergy/AdvReac Type Severity Reaction Status Date / Time No Known Allergies Allergy Verified 02/13/18 10:33 - Respiratory Orders Oxygen / L per min (Titrate O2 to keep sats greater than 90% Aggressive pulmonary toileting [place]) Smoking Cessation: Smoking cessation has been advised. For more information, call the [place] [employer] Quit Line at 0-630-FZLX-NOW. - Ancillary Orders May use pressure relief devices daily prn - Advance Directives Living Will: No Power of Rail Doweling Machine Operator for Health Care: No Code Status: Full Code - Mobility Orders Ambulate - Rehabiliation Orders Rehab Potential: Good Rehab Orders: Evaluation for Physical Therapy, Evaluation for Occupational Therapy Other: General Surgical Discharge Instructions 1. No pushing, pulling, or lifting greater than 15 lbs for 6 weeks. 2. You may shower beginning today, but no tub baths, soaking, or swimming for 2 weeks. 3. You may resume driving when you are off narcotics and are safe to react in a car. 4. Take ibuprofen every 8 hours for discomfort. If this does not relieve discomfort, you may take the as needed Percocet. Take narcotics as directed. Do not take more narcotics then directed and do not share your narcotics with any other person. Do not drink alcohol while on narcotics. 5. Take stool softeners (Colace) or a water based laxative (Miralax) while taking narcotics. You may hold for loose stools. 6. Report any fevers greater than 100.5F, increase abdominal discomfort, drainage that looks like pus, increased redness or pain at the surgical site, or any vomiting. 7. Report any pain in the calves, shortness of breath, or rapid heartbeat. 8. Follow-up in the office as directed. 9. If you were prescribed antibiotics, do not stop them without talking to your provider. Increase activity as tolerated per PT/OT Pain medications per [facility]. May d/c with appropriate pain medications as indicated - Treatments Skin tear care topically daily PRN per policy List/Other: Pain medications per [facility]. May d/c with appropriate pain medications as indicated. - Diet Orders Regular House Supplement per Dietary: Ensure or Boost TID CERTIFICATION: I certify that the transfer of the above named patient to an Extended Care Facility is necessary for the continuing treatment of the diagnosis listed. The above information is true and accurate reflection of patient's current condition. Confidential - Redisclosure prohibited without a patient's written consent.
[2018-12-23 11:47] LABS: Basophils % 0.2 %; Eosinophils # 0.1 K/mcL (0.0-0.6); Eosinophils % 1.3 %; Hematocrit 36.3 % (37.5-50.1); Hemoglobin 11.9 g/dL (12.9-16.9); Immature Granulocytes % 0.9 % (0-4); Lymphocytes # 1.4 K/mcL (0.6-4.6); Lymphocytes % 13.4 %; Mean Corpuscular HGB Conc 32.8 g/dL (31.6-35.5); Mean Corpuscular Hemoglobin 28.2 pg (28.0-33.3); Mean Platelet Volume 13.4 fL (9.4-12.4); Monocytes % 9.5 %; Neutrophils # 7.8 K/mcL (1.6-8.9); Platelet Count 298 K/mcL (140-400); Red Blood Count 4.22 M/mcL (4.19-5.50); Red Cell Distribution Width 13.7 % (11.5-14.5); Segmented Neutrophils % 74.7 %
[2018-12-23 12:11] LABS: BUN/Creatinine Ratio 21 (6-26); Blood Urea Nitrogen 19 mg/dL (8-23); Calcium 9.5 mg/dL (8.6-10.3); Carbon Dioxide 29 mEq/L (23-29); Chloride 97 mEq/L (98-107); Glucose 229 mg/dL (70-105); Osmolality,Calculated 290 (280-300); Potassium 3.6 mEq/L (3.5-5.1); Sodium 135 mEq/L (136-145); eGFR For Non-African Americans > 60 (> 60)
[2018-12-23 12:52] LABS: Estimated Average Glucose 174 mg/dl; Hemoglobin A1C 7.7 %
[2018-12-24] MEDS: Ipratropium/Albuterol Neb 3 ML IH SCH ×3 (04:29→16:43)
[2018-12-24] MEDS: *HR* Heparin 5,000 UNIT/ML VIAL SQ SCH (05:34)
[2018-12-24] MEDS: Insulin LISPRO 300 UNITS/3 ML VIAL SQ SCH ×2 (08:22→12:41)
[2018-12-24] MEDS: Pantoprazole 40 MG VIAL IVP SCH (08:28)
[2018-12-24] MEDS: Lisinopril 20 MG TABLET PO SCH (08:28)
[2018-12-24] MEDS: Fluticasone Propionate Nasal 50 MCG/SPRAY BOTTLE NS SCH (08:30)
[2018-12-24 11:22] VITALS: BP 151/74
--- NOTE | 2018-12-24 16:43 | Physician Discharge Referral ---
Home Health/Hosp Referral Info Transfer to: Home Health Attending Provider: Dr. Anthony Carter Provider in Charge Post Discharge: Other (Same) - Diagnosis (1) Perforation of colon as colonoscopy complication Priority: Primary Status: Resolved (2) HTN, goal below 130/80 Priority: Secondary Status: Chronic (3) Leukocytosis Priority: Secondary Status: Resolved (4) Diabetes mellitus Priority: Secondary Status: Chronic (5) Fluid overload Priority: Secondary Status: Suspected - Respiratory Orders Smoking Cessation: Smoking cessation has been advised. For more information, call the [facility] Quit Line at 4-828-XPGX-NOW. - Diet/Nutrition Diet/Nutrition Orders: Regular - Activity Activity Orders: Ambulate, Walker - Services Needed Following services are medically necessary services: Nursing, Physical Therapy, Occupational Therapy Home Care Orders: General Surgical Discharge Instructions 1. No pushing, pulling, or lifting greater than 15 lbs for 6 weeks. 2. You may shower beginning today, but no tub baths, soaking, or swimming for 2 weeks. 3. You may resume driving when you are off narcotics and are safe to react in a car. 4. Take ibuprofen every 8 hours for discomfort. If this does not relieve discomfort, you may take the as needed Percocet. Take narcotics as directed. Do not take more narcotics then directed and do not share your narcotics with any other person. Do not drink alcohol while on narcotics. 5. Take stool softeners (Colace) or a water based laxative (Miralax) while taking narcotics. You may hold for loose stools. 6. Report any fevers greater than 100.5F, increase abdominal discomfort, drainage that looks like pus, increased redness or pain at the surgical site, or any vomiting. 7. Report any pain in the calves, shortness of breath, or rapid heartbeat. 8. Follow-up in the office as directed. 9. If you were prescribed antibiotics, do not stop them without talking to your provider. Increase activity as tolerated per PT/OT; Nursing for HTN and chronic decreased O2 management. Report any symptoms of fluid overload or CHF to real estate office manager or PCP. - Transfer Medications Prescriptions: Ondansetron ODT [Zofran ODT] 4 mg SL Q4HR PRN #15 tab.rapdis PRN Reason: Postsurgical nausea OxyCODONE/APAP 5/325 [Percocet 5/325 MG] 1 each PO Q6HR PRN 7 Days #28 tablet PRN Reason: Pain Docusate Sodium [Colace] 100 mg PO BID PRN #30 capsule PRN Reason: Contstipation Lisinopril [Zestril] 20 mg PO DAILY #30 tablet Metoprolol Tartrate [Lopressor] 50 mg PO BID #60 tablet Home Medications: Atorvastatin [Lipitor] 40 mg PO HS 12/17/18 [History] Citalopram Hydrobromide [Citalopram HBr] 40 mg PO DAILY 12/17/18 [History] Fenofibrate Nanocrystallized [Fenofibrate] 160 mg PO DAILY 12/17/18 [History] Fluticasone Propionate Nasal [Flonase] 1 spray NS BID 12/17/18 [History] Metformin HCl [Glucophage Xr] 1,000 mg PO BID 12/17/18 [History] Simethicone [Gas-X] 80 mg PO TID PRN tab.chew 12/23/18 [Rx] Docusate Sodium [Colace] 100 mg PO BID PRN #30 capsule 12/24/18 [Rx] Lisinopril [Zestril] 20 mg PO DAILY #30 tablet 12/24/18 [Rx] Metoprolol Tartrate [Lopressor] 50 mg PO BID #60 tablet 12/24/18 [Rx] Ondansetron ODT [Zofran ODT] 4 mg SL Q4HR PRN #15 tab.rapdis 12/24/18 [Rx] OxyCODONE/APAP 5/325 [Percocet 5/325 MG] 1 each PO Q6HR PRN 7 Days #28 tablet 12/24/18 [Rx] Allergies/Adverse Reactions: Allergy/AdvReac Type Severity Reaction Status Date / Time No Known Allergies Allergy Verified 02/13/18 10:33 Certification: Further, I certify that my clinical findings support that this patient is homebound (i.e. absences from home require considerable and taxing effort and are for medical reasons or advent services or infrequently or short duration when for other reasons) because: Homebound Reason: Post-surgery restriction and or conditions limit ability to leave home, Leaving home requires considerable and taxing effort due to condition Attestation: My signature below is to certify that this patient is under my care and that I, or nurse practitioner, or a physician's pet care assistant working with me, has a [id number] encounter with this patient.
--- NOTE | 2018-12-24 17:25 | Internal Med Progress Note ---
Hospitalist Progress Note - Encounter Date of Encounter: 12/24/18 Time of Encounter: 13:00 - Subjective Interval History: Patient is a 73-year-old male with past medical history significant for hypertension, hyperlipidemia, and CAD being managed for perforation repair secondary to colonoscopy per general surgery team. Hospitalist service was consulted the evening of 12/21/18 due to uncontrolled hypertension. Patient's dose of lisinopril was increased on 12/22/18 and continued current dose of metoprolol without any improvement in blood pressures As a result, patient's dose of beta kourtney was increased on 12/23/18 and now blood pressures controlled. - Exam Vitals: Temp Pulse Resp BP Pulse Ox 98.1 F 68 16 151/74 91 12/24/18 11:20 12/24/18 11:20 12/24/18 11:20 12/24/18 11:20 12/24/18 11:20 Exam: Gen.: Nonacute distress, alert and oriented 3 ENT: Mucosal membranes moist Respiratory: Lungs are clear to auscultation bilaterally without any wheezing rhonchi or rales Cardiovascular: Normal S1 and S2 regular rate rhythm no murmurs rubs or gallops Abdomen: Soft, nontender and nondistended with positive bowel sounds Extremities: No lower extremity edema Skin: Normal color - Assessment and Plan (1) HTN (hypertension) Status: Chronic Assessment and Plan: Hospitalist service was consulted the evening of 12/21/18 due to uncontrolled hypertension. Patient's dose of lisinopril was increased on 12/22/18 and continued current dose of metoprolol without any improvement in blood pressures As a result, patient's dose of beta kourtney was increased on 12/23/18 and now blood pressures controlled. Medications for patient to be discharged on lisinopril 20 mg and metoprolol 50 mg twice daily. (2) Acute respiratory failure with hypoxia Status: Acute Assessment and Plan: Resolved as patient now on room air (3) Hypokalemia Status: Acute Assessment and Plan: Resolved with potassium supplementation Continue to monitor (4) Anemia Status: Acute Assessment and Plan: In addition patient noted to be anemic with a hemoglobin ranging from 9.7-12.7 during this admission; hemoglobin was 11.4 on 12/22/18 Patient found to be iron deficient on iron studies Will initiate ferrous sulfate Continue to monitor (5) Diabetes mellitus Status: Chronic Assessment and Plan: Controlled; A1c 7.9 on 10/23/18 Continue sliding scale insulin (6) HLD (hyperlipidemia) Status: Chronic Assessment and Plan: Continue statin (7) CAD (coronary artery disease) Status: Chronic Assessment and Plan: Patient with a history of CABG 3 Continue beta kourtney, statin and LAURE inhibitor (8) Depression Status: Chronic Assessment and Plan: Continue Citalopram. (9) Prostate cancer Status: Chronic Assessment and Plan: Hx of chronic prostate cancer. Pt. reports he is following up as OP for txs. (10) Perforation of colon as colonoscopy complication Status: Resolved DVT Prophylaxis: Heparin subcutaneous - Time Spent with Patient Total time spent is greater than 50% in coordination of care (as documented) at patient's floor/unit and/or counseling patient: Internal Medicine: Result - Labs CBC & Chem 7: 12/23/18 11:01 12/23/18 11:01 - ABG Interpretation ABG results: ABG ABG pH 7.47 pH Units (7.32-7.45) H 12/22/18 10:26 ABG pCO2 38 mmHg (35-45) 12/22/18 10:26 ABG pO2 82 mmHg (85-104) L 12/22/18 10:26 ABG O2 Saturation 97 % (95-98) 12/22/18 10:26 PT/INR, D-dimer PT 11.8 Seconds (9.4-12.1) 12/17/18 11:29 Consult Discharge Plan - Plan Instructions: Chronic Hypertension (DC), Perforated Bowel (GEN) Additional Instructions: General Surgical Discharge Instructions 1. No pushing, pulling, or lifting greater than 15 lbs for 6 weeks. 2. You may shower beginning today, but no tub baths, soaking, or swimming for 2 weeks. 3. You may resume driving when you are off narcotics and are safe to react in a car. 4. Take ibuprofen every 8 hours for discomfort. If this does not relieve discomfort, you may take the as needed Percocet. Take narcotics as directed. Do not take more narcotics then directed and do not share your narcotics with any other person. Do not drink alcohol while on narcotics. 5. Take stool softeners (Colace) or a water based laxative (Miralax) while taking narcotics. You may hold for loose stools. 6. Report any fevers greater than 100.5F, increase abdominal discomfort, dr haney that looks like pus, increased redness or pain at the surgical site, or any vomiting. 7. Report any pain in the calves, shortness of breath, or rapid heartbeat. 8. Follow-up in the office as directed. 9. If you were prescribed antibiotics, do not stop them without talking to your provider. Increase activity as tolerated per PT/OT Referrals: Anthony Carter MD [Partnered Physician] - 01/07/19 10:10 am Yared Resendiz DO [Primary Care Provider] - 12/31/18 2:30 pm Prescriptions: Ondansetron ODT [Zofran ODT] 4 mg SL Q4HR PRN #15 tab.rapdis PRN Reason: Postsurgical nausea OxyCODONE/APAP 5/325 [Percocet 5/325 MG] 1 each PO Q6HR PRN 7 Days #28 tablet PRN Reason: Pain Docusate Sodium [Colace] 100 mg PO BID PRN #30 capsule PRN Reason: Contstipation Lisinopril [Zestril] 20 mg PO DAILY #30 tablet Metoprolol Tartrate [Lopressor] 50 mg PO BID #60 tablet (1) HTN (hypertension) Qualifiers: Hypertension type: essential hypertension Qualified Code(s): I10 - Essential (primary) hypertension (5) Diabetes mellitus Qualifiers: Diabetes mellitus type: type 2 Diabetes mellitus loan analyst insulin use: without loan analyst use Diabetes mellitus complication status: without complication Qualified Code(s): E11.9 - Type 2 diabetes mellitus without complications (6) HLD (hyperlipidemia) Qualifiers: Hyperlipidemia type: pure hypercholesterolemia Qualified Code(s): E78.00 - Pure hypercholesterolemia, unspecified; E78.0 - Pure hypercholesterolemia (7) CAD (coronary artery disease) Qualifiers: Coronary Disease-Associated Artery/Lesion type: unspecified vessel or lesion type [place] vs. transplanted heart: [place] heart Associated angina: angina presence unspecified Qualified Code(s): I25.10 - Atherosclerotic heart disease of [place] coronary artery without angina pectoris (8) Depression Qualifiers: Depression Type: unspecified Qualified Code(s): F32.9 - Major depressive disorder, single episode, unspecified
== END 2018-12-24 17:05 | disposition home health service (06) | DRG 329 ==
LOC: EMEROOARM 10:38 → 3ANU 14:08
PROVIDERS: ADMIT Surgery; ATTEND Surgery